=== PATIENT | female | born 1950 | race Asian ===

== ENCOUNTER 2016-11-05 12:45 | Emergency (ER) | payer MEDICARE, OTHER ==
[~2016-11-05] VITALS: Ht 147.3 cm; Wt 68.0 kg
[~2016-11-05 12:45] MED LIST: /GLYB5TA PO; CIPR500T19 OR; GLUC1000 OR; GLUC1000 PO; GLYB2.5T6 OR; INSULANT SC; Januvia PO; PRIN5TAB OR; ZINC220C OR; byetta SC
[2016-11-05 12:46] VITALS: BP 192/93
[2016-11-05] MEDS ORDERED: INSUH10VL SC (13:03)
[2016-11-05] MEDS ORDERED: VITA1CAP14 PO (13:03)
[2016-11-05] MEDS ORDERED: HYDR12.55 PO (13:03)
[2016-11-05] MEDS ORDERED: INSULANT SC (13:03)
[2016-11-05] MEDS ORDERED: FOSA70TA PO (13:03)
== END 2016-11-05 13:37 | disposition home or self-care (01) ==
LOC: M ED 13:31
DX: R60.9 Edema, unspecified (principal); E11.9 Type 2 diabetes mellitus without complications; Z79.84 Long term (current) use of oral hypoglycemic drugs; Z79.899 Other long term (current) drug therapy; Z79.4 Long term (current) use of insulin; Z88.8 Allergy status to other drugs, medicaments and biological substances; I10 Essential (primary) hypertension

== ENCOUNTER 2017-11-19 13:10 | Emergency (ER) | payer MEDICARE, OTHER ==
[2017-11-21 08:47] LABS: BEDSIDE GLUCOSE 237 MG/DL (80-115)
== END 2017-11-19 14:29 | disposition home or self-care (01) ==
LOC: M ED 13:10
DX: E10.65 Type 1 diabetes mellitus with hyperglycemia (principal); I10 Essential (primary) hypertension; Z79.4 Long term (current) use of insulin; Z88.8 Allergy status to other drugs, medicaments and biological substances
CPT/HCPCS: 99283

== ENCOUNTER 2017-12-23 09:07 | Day surgery (SDC) | payer MEDICARE, OTHER ==
[2017-12-23] MEDS: NS 1,000 ML IV (09:30)
[2017-12-23] MEDS ORDERED: fentaNYL 100 MCG/2 ML INJECTION (J3010) As Ordered (10:00)
[2017-12-23] MEDS ORDERED: LIDOCAINE 2% INJ 100 MG/5 ML SDV (FOR ANES.) As Ordered ×2 (10:00→10:39)
[2017-12-23] MEDS ORDERED: PROPOFOL 200 MG/20 ML VIAL As Ordered (10:40)
== END 2017-12-23 11:25 | disposition home or self-care (01) ==
LOC: M OPP 09:07
DX: K63.5 Polyp of colon (principal); K64.8 Other hemorrhoids; R19.4 Change in bowel habit; K31.84 Gastroparesis; K21.9 Gastro-esophageal reflux disease without esophagitis; E11.9 Type 2 diabetes mellitus without complications; I10 Essential (primary) hypertension; F32.9 Major depressive disorder, single episode, unspecified; Z79.4 Long term (current) use of insulin; Z79.891 Long term (current) use of opiate analgesic; Z79.899 Other long term (current) drug therapy; Z88.8 Allergy status to other drugs, medicaments and biological substances; Z90.711 Acquired absence of uterus with remaining cervical stump; Z80.0 Family history of malignant neoplasm of digestive organs; Z86.73 Personal history of transient ischemic attack (TIA), and cerebral infarction without residual deficits
CPT/HCPCS: 45385

== ENCOUNTER 2018-11-21 04:35 | Emergency (ER) | payer MEDICARE, OTHER ==
[~2018-11-21] VITALS: Ht 152.4 cm; Wt 65.9 kg
[~2018-11-21 04:35] MED LIST changes: -/GLYB5TA PO; +ANTI2TAB16; +ATOR40TA75; +DIFL150T PO; +FOSA70TA PO; +GABA-1171; +GLYB1TAB29 PO; +HYDR-3713 PO; +HYDR12.55 PO; +HYDR1CAP25; +HYDROCODONE-ACETAMIN; +INSUH10VL SC; +PANT40TA3; +REFR0.1D OU; +TRAM50TA2; +VITA1CAP14 PO
[2018-11-21] MEDS ORDERED: METH1TAB40 (04:48)
[2018-11-21] MEDS ORDERED: VITA1CAP25 (04:48)
[2018-11-21] MEDS ORDERED: IBUP80TA (04:48)
[2018-11-21] MEDS ORDERED: JANU100T (04:48)
[2018-11-21] MEDS ORDERED: NOVOINJ2 (04:48)
[2018-11-21] MEDS ORDERED: LISI-538 (04:48)
[2018-11-21] MEDS ORDERED: FISH1000 (04:48)
[2018-11-21] MEDS ORDERED: OMEP40CA2 (04:48)
[2018-11-21] MEDS ORDERED: ASPI1TAB15 (04:48)
[2018-11-21] MEDS ORDERED: METF500T4 (04:48)
[2018-11-21] MEDS ORDERED: JARD1TAB3 (04:48)
[2018-11-21] MEDS ORDERED: methylPREDNISolone INJ 125 MG/2 ML VIAL (J2930) IM ONE (06:00)
[2018-11-21] MEDS ORDERED: PRED20TA PO (06:05)
[2018-11-21] MEDS ORDERED: ZITHTAB PO (06:05)
[2018-11-21 06:07] LABS: INFLUENZA A AMPLIFICATION NEGATIVE (NEGATIVE); INFLUENZA B AMPLIFICATION NEGATIVE (NEGATIVE)
[2018-11-21 06:24] VITALS: BP 135/82
--- NOTE | 2018-11-21 07:18 | REP ---
Comparisons are the PA and lateral chest dated 04/15/2009 and portable chest of 01/12/2012. The lung boyd are clear. The cardiac size is normal. The juan, mediastinum, and skeletal structures are unremarkable. There has been interval placement of a cervical spine stabilization plate. Impression: Negative PA and lateral chest. Electronically Signed by Moody Cheng MD 11/21/2018 07:09 A
== END 2018-11-21 06:20 | disposition home or self-care (01) ==
LOC: M ED 04:35
DX: J40 Bronchitis, not specified as acute or chronic (principal); Z91.041 Radiographic dye allergy status; Z79.82 Long term (current) use of aspirin; Z79.899 Other long term (current) drug therapy
CPT/HCPCS: 71046; 87502; 87798; 96372; 99283; J2930

== ENCOUNTER 2018-12-04 08:09 | Emergency (ER) | payer MEDICARE, OTHER ==
[~2018-12-04] VITALS: Ht 147.3 cm; Wt 67.3 kg
[~2018-12-04 08:09] MED LIST changes: +ASPI1TAB15; +FISH1000; +IBUP80TA; +JANU100T; +JARD1TAB3; +LISI-538; +METF500T4; +METH1TAB40; +NOVOINJ2; +OMEP40CA2; +PRED20TA PO; +VITA1CAP25; +ZITHTAB PO
[2018-12-04] MEDS ORDERED: VALT1TAB PO ×2 (09:37→11:18)
[2018-12-04] MEDS ORDERED: CALA120T2 PO ×2 (09:37→11:18)
[2018-12-04] MEDS ORDERED: MACR100C43 PO ×2 (11:09→11:18)
[2018-12-04 11:25] VITALS: BP 128/83
== END 2018-12-04 11:30 | disposition home or self-care (01) ==
LOC: M ED 08:09
DX: R05 Cough (principal); N39.3 Stress incontinence (female) (male); N76.6 Ulceration of vulva; N39.0 Urinary tract infection, site not specified; E11.9 Type 2 diabetes mellitus without complications; I10 Essential (primary) hypertension; E78.5 Hyperlipidemia, unspecified; Z79.82 Long term (current) use of aspirin; Z79.4 Long term (current) use of insulin; Z79.899 Other long term (current) drug therapy; Z88.8 Allergy status to other drugs, medicaments and biological substances

== ENCOUNTER → 2019-04-19 | Outpatient (CLI) | payer MEDICARE, OTHER ==
[~2019-04-19] MED LIST changes: +CALA120T2 PO; +MACR100C43 PO; +METF-791; -METF500T4; -OMEP40CA2; +OMEP40CA97; +VALT1TAB PO
--- NOTE | 2019-04-20 15:46 | DEXA ---
AP SPINE L1 - L4 1.003 -1.5 0.1 LT FEMUR TOTAL 0.953 -0.4 0.9 LT NECK 0.783 -1.8 -0.3 RT FEMUR TOTAL 1.014 0.0 1.4 RT NECK 0.817 -1.6 0.0 TOTAL BODY TOTAL OTHER COMMENTS: . There is low bone density of the spine and hips. FOLLOW-UP: Recommendation for the next bone density exam: 2 years. KATRIN
== END ==
LOC: M WHC 07:49
PROVIDERS: ATTEND Student in an Organized Health Care Education/Training Program
DX: Z87.310 Personal history of (healed) osteoporosis fracture (principal); M85.851 Other specified disorders of bone density and structure, right thigh; M85.852 Other specified disorders of bone density and structure, left thigh; M85.88 Other specified disorders of bone density and structure, other site

== ENCOUNTER 2019-10-08 01:54 | Emergency (ER) | payer MEDICARE, OTHER ==
[~2019-10-08] VITALS: Ht 147.3 cm; Wt 68.8 kg
--- NOTE | 2019-10-08 03:46 | REPVR ---
PROCEDURE INFORMATION: Exam: CT Head Without Contrast Exam date and time: 10/08/19 (3:11am) Age: 69 years old Clinical indication: Pain. Headache. Hypertension. TECHNIQUE: Imaging protocol: Computed tomography of the head without contrast. Radiation optimization: All CT scans at this facility use at least one of these dose optimization techniques: automated exposure control; mA and/or kV adjustment per patient size (includes targeted exams where dose is matched to clinical indication); or iterative reconstruction. COMPARISON: No relevant prior studies available FINDINGS: Brain: Age-appropriate atrophic changes. No acute hemorrhage. No mass effect. Bilateral basal ganglia calcifications. Ventricles: Normal. No ventriculomegaly. Bones/joints: Unremarkable. No acute fracture. Sinuses: Visualized sinuses are unremarkable. No air-fluid levels. Mastoid air cells: Visualized mastoid air cells are well aerated. Soft tissues: Unremarkable. IMPRESSION: No acute intracranial pathology is appreciated. Electronically signed by: Nadine Mendoza On 10/08/2019 03:45:51 AM
[2019-10-08 03:47] LABS: BASO # 0.1 10^3/uL (0.0-0.2); BASO % 0.7 % (0.0-1.0); EOS # 0.2 10^3/uL (0.0-0.5); EOS % 2.2 % (0.0-3.0); HEMATOCRIT 48.7 % (36.0-47.0); HEMOGLOBIN 16.5 g/dl (12.0-15.5); LYMPH # 3.4 10^3/uL (1.5-5.0); LYMPH % 37.1 % (24.0-44.0); MEAN CORPUSCULAR HEMOGLOBIN 30.6 pg (27.0-33.0); MEAN CORPUSCULAR HGB CONC 33.9 g/dl (32.0-36.5); MEAN CORPUSCULAR VOLUME 90.2 fl (80.0-96.0); MONO # 0.7 10^3/uL (0.0-0.8); MONO % 7.3 % (0.0-5.0); NEUTROPHILS # 4.8 10^3/uL (1.5-8.5); NEUTROPHILS % 52.5 % (36.0-66.0); PLATELET COUNT, AUTOMATED 261 10^3/uL (150-450); WHITE BLOOD COUNT 9.2 10^3/uL (4.0-10.0)
[2019-10-08 04:17] LABS: BLOOD UREA NITROGEN 14 MG/DL (7-18); CALCIUM LEVEL 8.6 MG/DL (8.8-10.2); CARBON DIOXIDE LEVEL 29 MEQ/L (21-32); CHLORIDE LEVEL 100 MEQ/L (98-107); CK-MB VALUE MASS 1.3 NG/ML (<3.6); CPK CREATINE PHOSPHOKINASE 153 U/L (26-192); CREATININE FOR GFR 0.73 MG/DL (0.55-1.30); GLOMERULAR FILTRATION RATE > 60.0 (>45); GLUCOSE, FASTING 136 MG/DL (70-100); MB/CK RELATIVE INDEX 0.85 (< OR =4); POTASSIUM SERUM 3.9 MEQ/L (3.5-5.1); SODIUM LEVEL 137 MEQ/L (136-145); TROPONIN I < 0.02 NG/ML (< 0.10)
[2019-10-08] MEDS ORDERED: hydroCHLOROthiazide 12.5 MG CAPSULE PO ONE (05:30)
[2019-10-08] MEDS ORDERED: NOVOINJ SC (05:39)
[2019-10-08 05:48] VITALS: BP 162/102
[2019-10-08] MEDS ORDERED: HYDR12.55 PO (05:55)
--- NOTE | 2019-10-08 08:08 | REP ---
Portable chest, 03:50 a.m., single AP view: Comparison is 11/21/2018, PA and lateral views: The lung boyd are clear. The cardiac size is normal. The juan, mediastinum, and skeletal structures are unremarkable. There is a cervical spine stabilization plate, unchanged. Impression: Negative portable chest. There is no interval change. Electronically Signed by Moody Cheng MD 10/08/2019 08:00 A
--- NOTE | 2019-10-08 20:55 | ECGEPIP ---
[facility] - ED Test Date: 2019-10-08 Pat Name: ANDRÉS KNIGHT Department: Room: - Gender: Female Transcripter: ese : 1950 Requested By: MAYCOL Bang Order Number: [id number] Reading MD: Wendi Pascual Measurements Intervals [place] Rate: 65 P: 49 MA: 166 QRS: -16 QRSD: 98 T: 71 QT: 423 QTc: 442 Interpretive Statements SINUS RHYTHM NO PRIOR Electronically Signed on 10-08-2019 20:55:11 EST by Wendi Pascual
== END 2019-10-08 06:20 | disposition home or self-care (01) ==
LOC: M ED 01:54
DX: I10 Essential (primary) hypertension (principal); Z88.8 Allergy status to other drugs, medicaments and biological substances; Z79.899 Other long term (current) drug therapy; Z79.82 Long term (current) use of aspirin; Z79.4 Long term (current) use of insulin

== ENCOUNTER → 2020-05-17 | Outpatient (CLI) | payer MEDICARE, OTHER ==
[~2020-05-17] MED LIST changes: +ASPI-546; -ASPI1TAB15; -METF-791; +METF-838; +NOVOINJ SC; +PANT40TA29; -PANT40TA3
[2020-05-17 14:21] LABS: ALBUMIN 3.7 GM/DL (3.2-5.2); ALT/SGPT 49 U/L (12-78); BILIRUBIN,DIRECT 0.1 MG/DL (0.0-0.2); BILIRUBIN,TOTAL 0.6 MG/DL (0.2-1.0); BLOOD UREA NITROGEN 11 MG/DL (7-18); CALCIUM LEVEL 9.3 MG/DL (8.8-10.2); CARBON DIOXIDE LEVEL 30 MEQ/L (21-32); CHLORIDE LEVEL 105 MEQ/L (98-107); CPK CREATINE PHOSPHOKINASE 209 U/L (26-192); GLOMERULAR FILTRATION RATE > 60.0 (>45); GLUCOSE, FASTING 95 MG/DL (70-100); IRON (FE) 54 UG/DL (50-170); PHOSPHORUS LEVEL 4.4 MG/DL (2.5-4.9); POTASSIUM SERUM 4.1 MEQ/L (3.5-5.1); SODIUM LEVEL 141 MEQ/L (136-145); TOTAL PROTEIN 7.5 GM/DL (6.4-8.2)
[2020-05-17 14:25] LABS: VITAMIN B12 LEVEL 403 PG/ML (247-911)
== END ==
LOC: M PLALAB 11:09
PROVIDERS: ATTEND Internal Medicine
DX: M79.10 Myalgia, unspecified site (principal); R25.2 Cramp and spasm; Z79.899 Other long term (current) drug therapy

== ENCOUNTER → 2020-06-04 | Outpatient (CLI) | payer MEDICARE, OTHER | LOC: M WHC 09:22 | PROVIDERS: ATTEND Internal Medicine | DX: M54.6 Pain in thoracic spine (principal); M54.5 Low back pain; Z78.0 Asymptomatic menopausal state; Z53.9 Procedure and treatment not carried out, unspecified reason ==

== ENCOUNTER → 2020-08-14 | Outpatient (CLI) | payer MEDICARE, OTHER ==
--- NOTE | 2020-08-14 09:13 | REPMRS ---
Patient History The patient states she has not had a clinical breast exam in over a year. Patient is postmenopausal. No known family history of cancer. Digital Woman Screen Mammo: August 14, 2020 - Exam #: [id number] Bilateral CC and MLO view(s) were taken. Technologist: Zara Michelle, Technologist Prior study comparison: October 28, 2018, bilateral digital mammo screening bilat, performed at [facility]. October 06, 2017, bilateral digital mammo screening bilat, performed at [facility]. October 03, 2016, bilateral digital mammo screening bilat, performed at [facility]. FINDINGS: There are scattered fibroglandular densities. The Volpara volumetric breast density category is:B. There has been no change in the appearance of the mammogram from the prior studies. There is a mild amount of scattered fibroglandular density which is fairly symmetric. There is no interval development of dominant mass, architectural distortion, or grouped microcalcification suggestive of malignancy. 3-D tomosynthesis shows no additional findings. Assessment: BI-RADS/ACR category 1 mammogram. Negative Mammogram. Recommendation Routine screening mammogram of both breasts in 1 year (for women over age 40). This patient's [facility] Lifetime Breast Cancer Risk is estimated at 4.3 %. This mammogram was interpreted with the aid of an FDA-approved computer-aided dectection system. Electronically Signed By: Oral Torrez MD 08/14/20 0913
== END ==
LOC: M WHC 07:39
PROVIDERS: ATTEND Family Medicine
DX: Z12.31 Encounter for screening mammogram for malignant neoplasm of breast (principal)

== ENCOUNTER → 2020-09-03 | Outpatient (REF) | payer MEDICARE, OTHER ==
[~2020-09-03] MED LIST changes: -LISI-538; +LISI20TA33; +METH-1164; -METH1TAB40
[2020-09-03 18:16] LABS: ALBUMIN 3.8 GM/DL (3.2-5.2); BILIRUBIN,DIRECT 0.2 MG/DL (0.0-0.2); BILIRUBIN,TOTAL 0.9 MG/DL (0.2-1.0); TOTAL PROTEIN 7.3 GM/DL (6.4-8.2)
== END ==
LOC: M SFHCRHEU 12:45
PROVIDERS: ATTEND Internal Medicine
DX: R74.01 Elevation of levels of liver transaminase levels (principal)
CPT/HCPCS: 80076; G0463

== ENCOUNTER → 2020-09-13 | Outpatient (CLI) | payer MEDICARE, OTHER ==
[~2020-09-13] MED LIST changes: +LISI-538; -LISI20TA33; -METH-1164; +METH1TAB40
--- NOTE | 2020-09-19 02:03 | ECWPNPC ---
PATIENT NAME: ANDRÉS KNIGHT : 1950 GENDER: FEMALE VISIT DATE: 09/13/2020 DISCHARGE DATE: 09/13/20 1140 VISIT LOCKED DATE TIME: PHYSICIAN: MICKI GANT RESOURCE: MICKI GANT REASON FOR APPOINTMENT 1. BACK HISTORY OF PRESENT ILLNESS DEPRESSION SCREENING: PHQ-2 (2015 EDITION) LITTLE INTEREST OR PLEASURE IN DOING THINGS?NOT AT ALL FEELING DOWN, DEPRESSED, OR HOPELESS?NOT AT ALL TOTAL SCORE0 GENERAL: ANDRÉS IS BEING SEEN TODAY PER REFERRAL OF DR. CASTILLO, RHEUMATOLOGY IN [place] TO EVALUATE COMPLAINTS OF PERSISTENT MUSCLE SPASM TYPE PAIN AND GENERALIZED BODY PAIN. SHE IS ACCOMPANIED IN THE EXAM ROOM WITH HER . BOTH SHE AND HER ARE VAGUE HISTORIANS. REPORTING WHAT SOUNDS LIKE A FALL THAT CAUSED AGGRAVATION IN HER PAIN IN THE PAST FEW MONTHS. NO SPECIFIC SITE OF PAIN JUST REPORTS OF CRAMPING MAINLY AT NIGHT AND MUSCLE SPASM IN HER LEGS. SHE WAS VERY ACTIVE UP UNTIL RESTRICTIONS OF COVID 19. STATES SHE SWAM EVERY DAY YEAR-ROUND. SHE WAS NOT SUFFERING FROM MUSCLE SPASM TYPE PAIN AT THAT POINT IN TIME. DENIES BOWEL OR BLADDER INCONTINENCE. DENIES ANY FOCAL SITES OF PAIN. DENIES SADDLE PARESTHESIAS. -. FALL RISK SCREENING: SCREENING :NO FALLS REPORTED IN THE LAST YEAR PAIN SCREENING: PATIENT HAS A COMPLAINT OF ACUTE OR CHRONIC PAIN :YES LOCATION OF PAIN:UPPER BACK, MID BACK, LOW BACK INTENSITY OF PAIN (SCALE OF 1 TO 10):8 WHAT DOES YOUR PAIN FEEL LIKE: MUSCLE PAIN AND CRAMPS DURATION:CONTINOUS, CONSTANT PAIN IS INCREASED BY:ACTIVITIES PAIN IS DECREASED BY:USE OF PAIN MEDICATIONS TREATMENT/MEDICATIONS USED TO MANAGE PAIN:OTC PAIN RELIEVERS LEVEL OF RELIEF FROM PAIN TREATMENTS IN THE PAST:0% NURSING NOTE: -. PAIN CENTER INTAKE QUESTIONS: DO YOU HAVE A HISTORY OF MRSA? :NO DO YOU TAKE A BLOOD THINNERS? :NO DO YOU HAVE ANY BLEEDING DISORDERS? :NO ANY NEW NUMBNESS OR WEAKNESS IN YOUR LEGS OR ARMS? :NO ANY PACEMAKER,DEFIBRILLATOR, OR DORSAL COLUMN STIMULATOR? :NO DO YOU HAVE ANY RASHES OR OPEN SORES? :NO ARE YOU ALLERGIC TO IV DYE? :NO ARE YOU DIABETIC? :YES ANY NEW PROBLEMS WITH YOUR MEDICATIONS? :NO HAVE YOU RECEIVED A VACCINE IN THE PAST 30 DAYS? :NO DO YOU PLAN TO RECEIVE A VACCINE IN THE NEXT 21 DAYS? :NO DO YOU NEED ANY PRESCRIPTION? :NO DO YOU TAKE ANY IMMUNOSUPPRESSIVE MEDICATIONS? :NO IS THERE A CHANCE YOU COULD BE ? :NO ARE YOU BREAST FEEDING? :NO CURRENT MEDICATIONS TAKING LISINOPRIL 12.5 1 TAB ORALLY ONCE DAILY TAKING NOVOLOG SUBCUTANEOUS 24AM AND 24PM TAKING LANTUS 32 UNITS SUBCUTANEOUS TAKING VITAMIN D 1000 UNIT TABLET 1 TAB ORALLY DAILY TAKING MULTIVITAMIN 1 TAB DAILY TAKING FISH OIL 1000 MG CAPSULE ORALLY DAILY TAKING OMEPRAZOLE 40 MG CAPSULE DELAYED RELEASE 1 TAB ORALLY DAILY TAKING PROCTOFOAM HC 1-1 % FOAM 1 APPLICATION NEEDED RECTAL FOUR TIMES A DAY TAKING DOCUSATE SODIUM 100 MG CAPSULE 1 CAPSULE NEEDED ORALLY BID TAKING GABAPENTIN (ONCE-DAILY) 300 MG TABLET 1 TABLET ORALLY ONCE A DAY, NOTES: X3 DAILY TAKING NATHAN 500 MG CAPSULE DIRECTED ORALLY DAILY TAKING LIDOCAINE 5 % PATCH 1 PATCH REMOVE AFTER 12 HOURS EXTERNALLY ONCE A DAY NOT-TAKING VITAMIN B COMPLEX - TABLET DIRECTED ORALLY DAILY NOT-TAKING METFORMIN HCL 1000 MG TABLET ORALLY 1 TAB AM 1 TAB PM NOT-TAKING SITAGLIPTIN PHOSPHATE NOT-TAKING GLYBURIDE-METFORMIN NOT-TAKING SIMVASTATIN 10 NOT-TAKING CALCIUM 600 + D MEDICATION LIST REVIEWED AND RECONCILED WITH THE PATIENT PAST MEDICAL HISTORY STROKE DIABETES MELLITUS HYPERLIPIDEMIA ALLERGIES IODINE: RASH - ALLERGY SURGICAL HISTORY C SECTION LT. FOREARM 10/2018 CERVICAL SURGERY 2018 SOCIAL HISTORY GENERAL: TOBACCO USE ARE YOU A:NONSMOKER LATEX QUESTIONNAIRE LATEX ALLERGY : HAVE YOU EVER DEVELOPED ANY TYPE OF REACTION AFTER HANDLING LATEX PRODUCTS SUCH RUBBER GLOVES, CONDOMS, DIAPHRAGMS, BALLOONS, SOCKS, OR UNDERWEAR?NO LATEX ALLERGY : HAVE YOU EVER DEVELOPED ANY TYPE OF REACTION DURING OR AFTER DENTAL APPOINTMENT, VAGINAL/RECTAL EXAMINATION, SURGICAL PROCEDURE, OR ANY OTHER EXPOSURE?NO DATE ASKED : 09/03/2020 LATEX RISK : HAVE YOU EVER HAD ANY DIFFICULTY BREATHING OR HIVES AFTER EATING OR HANDLING ANY FRUITS, OR VEGETABLES; SUCH KIWI, BANANAS, STONE FRUITS, OR CHESTNUTSNO LATEX RISK : DO YOU HAVE A PREVIOUS PERSONAL HISTORY OF MORE THAN NINE SURGERIES, SPINA BIFIDA, OR REPEATED CATHERIZATIONS? NO LATEX RISK : ARE YOU FREQUENTLY EXPOSED TO LATEX PRODUCTS IN YOUR OCCUPATION?NO ALCOHOL USE: NO. ALCOHOL SCREENING DID YOU HAVE A DRINK CONTAINING ALCOHOL IN THE PAST YEAR?NO POINTS0 INTERPRETATIONNEGATIVE RECREATIONAL DRUG USE DRUG USE?YES CAFFEINE CAFFEINE USE?YES COFFEE- SOMETIMES LEARNING BARRIERS / SPECIAL NEEDS BARRIERS TO LEARNING?NO HEARING IMPAIRED?NO VISION IMPAIRED?NO COGNITIVELY IMPAIRED?NO READINESS TO LEARN?YES LEARNING PREFERENCES?YES :TAPES/VIDEOS LEARNING CAPABILITIES PRESENT?YES EMOTIONAL BARRIERS?NO SPECIAL DEVICES?NO LIGHT OUT EXAMINER NEEDED?NO EXERCISE: WALK- 3 MILES DAILY, SWIMMING DAILY. HOSPITALIZATION/MAJOR DIAGNOSTIC PROCEDURE SURGICAL RELATED REVIEW OF SYSTEMS CONSTITUTIONAL: ANY RECENT FEVER NO . CHILLS NO . WEIGHT CHANGE OF UNKNOWN REASONS NO . GASTROENTEROLOGY: NEW UNEXPLAINABLE CHANGES IN BOWEL CONTROL NO . CONSTIPATION NO . GENITOURINARY: ANY NEW CHANGE IN BLADDER CONTROL? NO . NEUROLOGY: NEW ONSET DIZZINESS OR NEUROLOGICAL CHANGES NOT MENTIONED NO . NEW NUMBNESS OR PAIN PATTERNS NOT MENTIONED AND PERTINENT TO TODAY'S VISIT NO . CARDIOLOGY: NEW CHEST PRESSURE NO . NEW CHEST PAIN NO . RESPIRATORY: UNEXPLAINABLE COUGH NO . NEW SHORTNESS OF BREATH NO . VITAL SIGNS WT 153 LBS, HT 59 IN, BMI 30.90 INDEX, BP 145/75 MM HG, HR 77 /MIN, RR 18 /MIN, TEMP 96.8 F, OXYGEN SAT % 96%, SAFE IN ENV? (Y/N) YES, REVIEWED BY: RIVKA ROB MA. EXAMINATION GENERAL EXAMINATION: GENERALNO ACUTE DISTRESS, WELL NOURISHED AND HYDRATED. PSYCHAPPROPRIATE MOOD AND AFFECT . NECK:NO LYMPHADENOPATHY, SUPPLE. LUNGS:CLEAR TO AUSCULTATION BILATERALLY, NO WHEEZES, RHONCHI, RALES. HEART:NO MURMURS, REGULAR RATE AND RHYTHM. MUSCULOSKELETAL:NORMAL RANGE OF MOTION. MUSCLE STRENGTH TESTING 5/5 UPPER AND LOWER EXTREMITIES. LUMBAR: PALPATION: NEGATIVE FOR PAIN OVER L/S SPINE. NEGATIVE FOR PAIN OVER L/S PARSPINALS. CERVICAL: NEGATIVE FOR PAIN WITH PALPATION OF CERVICAL SPINE. NEGATIVE FOR PAIN WITH PALPATION OF CERVICAL PARASPINALS. NEGATIVE FOR PAIN WITH PALPATION OF TRAPEZIUS BILAT. NEUROLOGIC EXAM:NORMAL SENSATION TO LIGHT TOUCH UPPER AND LOWER EXTREMITIES. . ASSESSMENTS MYALGIA - M79.10 (PRIMARY) TREATMENT MYALGIA START SOMA TABLET, 350 MG, 1 TAB, ORALLY, AT BEDTIME, 30 DAYS, 30, REFILLS 1 NOTES: START SOMA 350 MG TABLET 1 AT BEDTIME FOR MUSCLE SPASM PAIN. RETURN TO CLINIC IN 6 WEEKS. PROCEDURE CODES FA211 ESTABILISHED PATIENT [facility] CHARGE DISPOSITION & COMMUNICATION FOLLOW UP 6 WEEKS (REASON: MEDICATION FOLLOW-UP AFTER STARTING SOMA 350 MG AT BEDTIME) ELECTRONICALLY SIGNED BY KATHERIN CRISTINA ON 09/18/2020 AT 10:39 AM EST DISCLAIMER : THIS IS A VISIT SUMMARY EXTRACTED FROM THE [employer] CHART. IT IS NOT A COPY OF THE [employer] PROGRESS NOTE. KATRIN
== END ==
LOC: M PAIN 10:45
PROVIDERS: ATTEND Nurse Practitioner Family
DX: M79.18 Myalgia, other site (principal); E11.9 Type 2 diabetes mellitus without complications; E78.5 Hyperlipidemia, unspecified; Z86.73 Personal history of transient ischemic attack (TIA), and cerebral infarction without residual deficits; Z79.4 Long term (current) use of insulin; Z79.899 Other long term (current) drug therapy; Z88.8 Allergy status to other drugs, medicaments and biological substances

== ENCOUNTER 2020-09-24 09:15 | Outpatient (RCR) | payer MEDICARE, OTHER ==
[~2020-09-24 09:15] MED LIST changes: -LISI-538; +LISI20TA33; +METH-1164; -METH1TAB40
== END 2020-10-13 ==
LOC: M PT 09:15
PROVIDERS: ATTEND Internal Medicine
DX: M51.36 Other intervertebral disc degeneration, lumbar region (principal)

== ENCOUNTER 2020-10-25 08:09 | Outpatient (RCR) | payer MEDICARE, OTHER | END 2020-11-13 | LOC: M PT 08:09 | PROVIDERS: ATTEND Internal Medicine | DX: M51.36 Other intervertebral disc degeneration, lumbar region (principal) ==

== ENCOUNTER → 2020-11-08 | Outpatient (CLI) | payer MEDICARE, OTHER ==
--- NOTE | 2020-11-14 07:04 | ECWPNPC ---
PATIENT NAME: ANDRÉS KNIGHT : 1950 GENDER: FEMALE VISIT DATE: 11/08/2020 DISCHARGE DATE: 11/08/20 1015 VISIT LOCKED DATE TIME: PHYSICIAN: MICKI GANT RESOURCE: MICKI GANT REASON FOR APPOINTMENT 1. MEDICATION FOLLOW-UP AFTER STARTING SOMA 350 MG AT BEDTIME HISTORY OF PRESENT ILLNESS GENERAL: ANDRÉS IS BEING SEEN TODAY FOR FOLLOW-UP AFTER INITIAL CONSULT AND STARTING SOMA 350 MG AT BEDTIME. ACCOMPANIED IN EXAM ROOM WITH HER . SPEAKS VERY LITTLE ITALIAN. CHIEF COMPLAINT IS MIDTHORACIC BACK PAIN. PAIN IS AGGRAVATED IN THIS REGION WHEN SHE LAYS FLAT ON BED. STATES SOMA IS HELPING WITH LEG CRAMPING THAT SHE WAS COMPLAINING OF AT INITIAL CONSULT. PATIENT WOULD LIKE SHOTS. NO RECENT IMAGING OF THE SPINE.-. FALL RISK SCREENING: SCREENING : NO FALLS REPORTED IN THE LAST YEAR. PAIN SCREENING: PATIENT HAS A COMPLAINT OF ACUTE OR CHRONIC PAIN :NO NURSING NOTE: -. PAIN CENTER INTAKE QUESTIONS: DO YOU HAVE A HISTORY OF MRSA? :NO DO YOU TAKE A BLOOD THINNERS? :NO DO YOU HAVE ANY BLEEDING DISORDERS? :NO ANY NEW NUMBNESS OR WEAKNESS IN YOUR LEGS OR ARMS? :NO ANY PACEMAKER,DEFIBRILLATOR, OR DORSAL COLUMN STIMULATOR? :NO DO YOU HAVE ANY RASHES OR OPEN SORES? :NO ARE YOU ALLERGIC TO IV DYE? :NO ARE YOU DIABETIC? :YES ANY NEW PROBLEMS WITH YOUR MEDICATIONS? :NO HAVE YOU RECEIVED A VACCINE IN THE PAST 30 DAYS? :NO DO YOU PLAN TO RECEIVE A VACCINE IN THE NEXT 21 DAYS? :NO DO YOU NEED ANY PRESCRIPTION? :NO DO YOU TAKE ANY IMMUNOSUPPRESSIVE MEDICATIONS? :NO IS THERE A CHANCE YOU COULD BE ? :NO ARE YOU BREAST FEEDING? :NO CURRENT MEDICATIONS TAKING LISINOPRIL 12.5 1 TAB ORALLY ONCE DAILY TAKING NOVOLOG SUBCUTANEOUS 24AM AND 24PM TAKING LANTUS 32 UNITS SUBCUTANEOUS TAKING VITAMIN D 1000 UNIT TABLET 1 TAB ORALLY DAILY TAKING MULTIVITAMIN 1 TAB DAILY TAKING FISH OIL 1000 MG CAPSULE ORALLY DAILY TAKING OMEPRAZOLE 40 MG CAPSULE DELAYED RELEASE 1 TAB ORALLY DAILY TAKING PROCTOFOAM HC 1-1 % FOAM 1 APPLICATION NEEDED RECTAL FOUR TIMES A DAY TAKING DOCUSATE SODIUM 100 MG CAPSULE 1 CAPSULE NEEDED ORALLY BID TAKING GABAPENTIN (ONCE-DAILY) 300 MG TABLET 1 TABLET ORALLY ONCE A DAY, NOTES: X3 DAILY TAKING NATHAN 500 MG CAPSULE DIRECTED ORALLY DAILY TAKING LIDOCAINE 5 % PATCH 1 PATCH REMOVE AFTER 12 HOURS EXTERNALLY ONCE A DAY TAKING SOMA 350 MG TABLET 1 TAB ORALLY AT BEDTIME UNKNOWN VITAMIN B COMPLEX - TABLET DIRECTED ORALLY DAILY UNKNOWN METFORMIN HCL 1000 MG TABLET ORALLY 1 TAB AM 1 TAB PM UNKNOWN SITAGLIPTIN PHOSPHATE UNKNOWN GLYBURIDE-METFORMIN UNKNOWN SIMVASTATIN 10 UNKNOWN CALCIUM 600 + D MEDICATION LIST REVIEWED AND RECONCILED WITH THE PATIENT PAST MEDICAL HISTORY STROKE DIABETES MELLITUS HYPERLIPIDEMIA ALLERGIES N.K.D.A. SURGICAL HISTORY C SECTION LT. FOREARM 10/2018 CERVICAL SURGERY 2018 FAMILY HISTORY BROTHER- CANCER. SOCIAL HISTORY GENERAL: TOBACCO USE ARE YOU A:NONSMOKER LATEX QUESTIONNAIRE LATEX ALLERGY : HAVE YOU EVER DEVELOPED ANY TYPE OF REACTION AFTER HANDLING LATEX PRODUCTS SUCH RUBBER GLOVES, CONDOMS, DIAPHRAGMS, BALLOONS, SOCKS, OR UNDERWEAR?NO LATEX ALLERGY : HAVE YOU EVER DEVELOPED ANY TYPE OF REACTION DURING OR AFTER DENTAL APPOINTMENT, VAGINAL/RECTAL EXAMINATION, SURGICAL PROCEDURE, OR ANY OTHER EXPOSURE?NO DATE ASKED : 09/03/2020 LATEX RISK : HAVE YOU EVER HAD ANY DIFFICULTY BREATHING OR HIVES AFTER EATING OR HANDLING ANY FRUITS, OR VEGETABLES; SUCH KIWI, BANANAS, STONE FRUITS, OR CHESTNUTSNO LATEX RISK : DO YOU HAVE A PREVIOUS PERSONAL HISTORY OF MORE THAN NINE SURGERIES, SPINA BIFIDA, OR REPEATED CATHERIZATIONS? NO LATEX RISK : ARE YOU FREQUENTLY EXPOSED TO LATEX PRODUCTS IN YOUR OCCUPATION?NO ALCOHOL USE: NO. ALCOHOL SCREENING DID YOU HAVE A DRINK CONTAINING ALCOHOL IN THE PAST YEAR?NO POINTS0 INTERPRETATIONNEGATIVE RECREATIONAL DRUG USE DRUG USE?YES CAFFEINE CAFFEINE USE?YES COFFEE- SOMETIMES LEARNING BARRIERS / SPECIAL NEEDS BARRIERS TO LEARNING?NO HEARING IMPAIRED?NO VISION IMPAIRED?NO COGNITIVELY IMPAIRED?NO READINESS TO LEARN?YES LEARNING PREFERENCES?YES :TAPES/VIDEOS LEARNING CAPABILITIES PRESENT?YES EMOTIONAL BARRIERS?NO SPECIAL DEVICES?NO LIVESTOCK COMMISSION AGENT NEEDED?NO EXERCISE: WALK- 3 MILES DAILY, SWIMMING DAILY. HOSPITALIZATION/MAJOR DIAGNOSTIC PROCEDURE SURGICAL RELATED REVIEW OF SYSTEMS CONSTITUTIONAL: ANY RECENT FEVER NO . CHILLS NO . WEIGHT CHANGE OF UNKNOWN REASONS NO . GASTROENTEROLOGY: NEW UNEXPLAINABLE CHANGES IN BOWEL CONTROL NO . CONSTIPATION NO . GENITOURINARY: ANY NEW CHANGE IN BLADDER CONTROL? NO . NEUROLOGY: NEW ONSET DIZZINESS OR NEUROLOGICAL CHANGES NOT MENTIONED NO . NEW NUMBNESS OR PAIN PATTERNS NOT MENTIONED AND PERTINENT TO TODAY'S VISIT NO . CARDIOLOGY: NEW CHEST PRESSURE NO . PATIENT DENIES NO . RESPIRATORY: UNEXPLAINABLE COUGH NO . NEW SHORTNESS OF BREATH NO . VITAL SIGNS WT 153 LBS, HT 59 IN, BMI 30.90 INDEX, BP 138/72 MM HG, HR 68 /MIN, RR 18 /MIN, TEMP 96.8 F, OXYGEN SAT % 97%, SAFE IN ENV? (Y/N) YES, NA INITIALS AL 09:01T.CHRISTINA KIRKLAND. EXAMINATION GENERAL EXAMINATION: GENERALNO ACUTE DISTRESS, WELL NOURISHED AND HYDRATED. PSYCHAPPROPRIATE MOOD AND AFFECT . LUNGS:CLEAR TO AUSCULTATION BILATERALLY, NO WHEEZES, RHONCHI, RALES. HEART:NO MURMURS, REGULAR RATE AND RHYTHM. MUSCULOSKELETAL:NORMAL RANGE OF MOTION. THORACIC SPINE: TRIGGER POINTS: ELICITED WITH PALPATION OVER MID THORACIC MUSCLES WITH INCREASED PAIN NOTED IN THESE AREAS WITH RANGE OF JOINT MOTION OF THE SPINE.. ASSESSMENTS MYALGIA, OTHER SITE - M79.18 (PRIMARY) PAIN IN THORACIC SPINE - M54.6 TREATMENT MYALGIA, OTHER SITE CONTINUE SOMA TABLET, 350 MG, 1 TAB, ORALLY, AT BEDTIME, 30 DAYS, 30, REFILLS 2 NOTES: TRIGGER POINT INJECTION BILATERAL THORACIC. PROCEDURE CODES FA211 ESTABILISHED PATIENT [facility] CHARGE DISPOSITION & COMMUNICATION FOLLOW UP POST PROCEDURE (REASON: TRIGGER POINT INJECTION BILATERAL THORACIC) ELECTRONICALLY SIGNED BY KATHERIN CRISTINA ON 11/13/2020 AT 03:56 PM EDT DISCLAIMER : THIS IS A VISIT SUMMARY EXTRACTED FROM THE [employer] CHART. IT IS NOT A COPY OF THE [employer] PROGRESS NOTE. KATRIN
== END ==
LOC: M PAIN 09:00
PROVIDERS: ATTEND Nurse Practitioner Family
DX: M79.18 Myalgia, other site (principal); M54.6 Pain in thoracic spine; E11.9 Type 2 diabetes mellitus without complications; Z86.73 Personal history of transient ischemic attack (TIA), and cerebral infarction without residual deficits; Z79.4 Long term (current) use of insulin; Z79.899 Other long term (current) drug therapy

== ENCOUNTER → 2020-11-09 | Outpatient (CLI) | payer MEDICARE, OTHER | LOC: M LABSMTC 08:38 | PROVIDERS: ATTEND Anesthesiology | DX: Z20.822 Contact with and (suspected) exposure to COVID-19 (principal) ==

== ENCOUNTER → 2020-11-14 | Outpatient (CLI) | payer MEDICARE, OTHER ==
[~2020-11-14] MED LIST changes: +BUPIVACAINE HCL 0.25% 10ML VIAL As Ordered ONE; +BUPIVACAINE HCL 0.25% 30ML VIAL As Ordered ONE; +TRIAMCINOLONE ACETONIDE SUSP 40 MG/ML VIAL (J3301) As Ordered ONE
--- NOTE | 2020-11-14 23:51 | ECWPNPC ---
PATIENT NAME: ANDRÉS KNIGHT : 1950 GENDER: FEMALE VISIT DATE: 11/14/2020 DISCHARGE DATE: 11/14/20 1019 VISIT LOCKED DATE TIME: PHYSICIAN: LEONEL BARRIENTOS MD RESOURCE: LEONEL BARRIENTOS MD REASON FOR APPOINTMENT 1. TRIGGER POINT INJECTIONS BILATERAL THORACIC HISTORY OF PRESENT ILLNESS GENERAL: -. FALL RISK SCREENING: SCREENING : NO FALLS REPORTED IN THE LAST YEAR. PAIN SCREENING: PATIENT HAS A COMPLAINT OF ACUTE OR CHRONIC PAIN :YES LOCATION OF PAIN:UPPER BACK INTENSITY OF PAIN (SCALE OF 1 TO 10):8 WHAT DOES YOUR PAIN FEEL LIKE:ACHING, CONTINOUS DURATION:CONTINOUS NURSING NOTE: -. PAIN CENTER INTAKE QUESTIONS: DO YOU HAVE A HISTORY OF MRSA? :NO DO YOU TAKE A BLOOD THINNERS? :NO DO YOU HAVE ANY BLEEDING DISORDERS? :NO ANY NEW NUMBNESS OR WEAKNESS IN YOUR LEGS OR ARMS? :NO ANY PACEMAKER,DEFIBRILLATOR, OR DORSAL COLUMN STIMULATOR? :NO DO YOU HAVE ANY RASHES OR OPEN SORES? :NO ARE YOU ALLERGIC TO IV DYE? :NO ARE YOU DIABETIC? :YES ANY NEW PROBLEMS WITH YOUR MEDICATIONS? :NO HAVE YOU RECEIVED A VACCINE IN THE PAST 30 DAYS? :YES SECOND COVID ON OCTOBER 25 IF SO WHAT VACCINE AND WHEN? COVID 19 DO YOU PLAN TO RECEIVE A VACCINE IN THE NEXT 21 DAYS? :NO DO YOU TAKE ANY IMMUNOSUPPRESSIVE MEDICATIONS? :NO ANY HISTORY OF SEIZURES? :NO ANY HISTORY OF CARDIAC ISSUES OR EVENTS? :NO DO YOU HAVE ANY KIDNEY OR LIVER DISEASE? :NO DO YOU HAVE SLEEP APNEA? :NO ANY RECENT HEAD INJURY? :NO DO YOU HAVE ANY NEW INFECTIONS? :NO IS THERE A CHANCE YOU COULD BE ? :NO ARE YOU BREAST FEEDING? :NO WHEN DID YOU LAST EAT? : -11/14/20 @ 0730 WHEN DID YOU LAST DRINK? : -11/14/20 @0730 WHAT DID YOU LAST DRINK? : -WATER NAME OF PERSON DRIVING YOU HOME? : - DO YOU HAVE ANY OTHER QUESTIONS OR CONCERNS? : -"WILL IT HURT?' VERBAL REASSURANCE GIVEN CURRENT MEDICATIONS TAKING LISINOPRIL 12.5 1 TAB ORALLY ONCE DAILY TAKING NOVOLOG SUBCUTANEOUS 24AM AND 24PM TAKING LANTUS 32 UNITS SUBCUTANEOUS TAKING VITAMIN D 1000 UNIT TABLET 1 TAB ORALLY DAILY TAKING MULTIVITAMIN 1 TAB DAILY TAKING FISH OIL 1000 MG CAPSULE ORALLY DAILY TAKING OMEPRAZOLE 40 MG CAPSULE DELAYED RELEASE 1 TAB ORALLY DAILY TAKING PROCTOFOAM HC 1-1 % FOAM 1 APPLICATION NEEDED RECTAL FOUR TIMES A DAY TAKING DOCUSATE SODIUM 100 MG CAPSULE 1 CAPSULE NEEDED ORALLY BID TAKING GABAPENTIN (ONCE-DAILY) 300 MG TABLET 1 TABLET ORALLY ONCE A DAY, NOTES: X3 DAILY TAKING LIDOCAINE 5 % PATCH 1 PATCH REMOVE AFTER 12 HOURS EXTERNALLY ONCE A DAY TAKING SOMA 350 MG TABLET 1 TAB ORALLY AT BEDTIME NOT-TAKING NATHAN 500 MG CAPSULE DIRECTED ORALLY DAILY NOT-TAKING VITAMIN B COMPLEX - TABLET DIRECTED ORALLY DAILY NOT-TAKING METFORMIN HCL 1000 MG TABLET ORALLY 1 TAB AM 1 TAB PM NOT-TAKING SITAGLIPTIN PHOSPHATE NOT-TAKING GLYBURIDE-METFORMIN NOT-TAKING SIMVASTATIN 10 NOT-TAKING CALCIUM 600 + D MEDICATION LIST REVIEWED AND RECONCILED WITH THE PATIENT PAST MEDICAL HISTORY STROKE DIABETES MELLITUS HYPERLIPIDEMIA HYPERTENSION ALLERGIES N.K.D.A. VITAL SIGNS WT 154 LBS, HT 59 IN, BMI 31.10 INDEX, BP 141/80 MM HG, HR 93 /MIN, RR 18 /MIN, TEMP 96.6 F, OXYGEN SAT % 96%, BLOOD GLUCOSE LEVEL 137, SAFE IN ENV? (Y/N) Y, REVIEWED BY: CARLOS. EXAMINATION GENERAL EXAMINATION: THE PATIENT IS ALERT, ORIENTED TIMES THREE AND COOPERATIVE. LUNGS ARE CLEAR TO AUSCULTATION. HEART SHOWS REGULAR RHYTHM, NO MURMURS AND NO GALLOPS. ASSESSMENTS MYALGIA, OTHER SITE - M79.18 (PRIMARY) TREATMENT MYALGIA, OTHER SITE COMPLETION OF PROCEDURAL VISIT WHEN MEETS CRITERIACANDY COOK 11/14/2020 10:31:20 AM > CRITERIA MET AT 1020 THIS PROCEDURE WAS REVIEWED BY CANDY COOK ON 11/14/2020 AT 15:34 PM EDT PROCEDURES PAIN NURSING RECORD PROCEDURE IN ROOM 0830, PHYSICIAN IN ROOM 0958, START 1000, FINISH 1008, PHYSICIAN OUT OF ROOM 1009, OUT OF ROOM 1020, ECG N/A, PATIENT SHIELDED N/A, SAFETY STRAP N/A, PREP ALCOHOL DR. BARRIENTOS, DRESSING TEGADERM Rubi COOK RN LOC: 1. ALERT, ORIENTEDJOEY TOM 11/14/2020 9:48:16 AM > RESP: 1. REGULAR, NO DYSPNEAJOEY TOM 11/14/2020 9:48:20 AM > COLOR: 1. PINKJOEY TOM 11/14/2020 9:48:25 AM > SKIN: 1. WARM, DRYJOEY TOM 11/14/2020 9:48:29 AM > POSITION: 5. SITTINGJOEY TOM 11/14/2020 9:48:35 AM > VITALS: EXIT VITALS - HR 96, 124/74, 95%, R16 1020 TBCIPRIANORN FOREST COOK RN COMPLETION OF PROCEDURE APPOINTMENT: POST PAIN 0, DRESSING SITE DRY AND INTACT BETWEEN SHOULDERS POSTERIOR BACK, IV N/A, GAIT STEADY, TEACHING COMPLETED, PATIENT ACKNOWLEDGES UNDERSTANDING YES, PROCEDURE APPOINTMENT COMPLETED AT 1020 PN TRIGGER POINT INJECTION WITH STEROIDS PRE PROCEDURE DIAGNOSIS 1. MYALGIA 2. PAIN AT BILATERAL THORACIC AREA POST PROCEDURE DIAGNOSIS 1. MYALGIA 2. PAIN AT BILATERAL THORACIC AREA PROCEDURE TRIGGER POINT INJECTION AT BILATERAL THORACIC AREA SURGEON DR. LEONEL BARRIENTOS OFFICE ADMIN NONE ANESTHESIA LOCAL PRE PROCEDURE NOTE THE PATIENT HAS A HISTORY OF CHRONIC PAIN AT THE RIGHT AND LEFT THORACIC AREA. I EVALUATED THE PATIENT AND REVIEWED THE CHART. THERE IS EVIDENCE OF BANDS OF TISSUE WITH RESTRICTION OF MOVEMENT AND PRESENCE OF TRIGGER POINT AT THE RIGHT AND LEFT THORACIC AREA. I WENT OVER THE RISKS, ALTERNATIVES, AND BENEFITS ASSOCIATED WITH THIS PROCEDURE. THE PATIENT WOULD LIKE TO PROCEED AND GIVE CONSENT TO PERFORMED THE PROCEDURE. THE PATIENT DENIES UNEXPLAINABLE WEIGHT LOSS, FEVER, CHILLS, OR NEW CHANGES IN URINARY OR BOWEL CONTROL. THE PATIENT IS COVID-19 NEGATIVE DESCRIPTION OF PROCEDURE THE PATIENT WAS BROUGHT TO THE PROCEDURE ROOM AND PLACED IN THE SITTING POSITION. THE AREA WAS CLEANED WITH ALCOHOL. THE PROCEDURE WAS DONE USING ASEPTIC STERILE TECHNIQUE. A TIMEOUT WAS PERFORMED WHERE THE CONSENTED SITE WAS VERIFIED WITH EVERYONE IN THE ROOM. USING A 25-GAUGE NEEDLE, TRIGGER POINTS WERE INJECTED AT THE RIGHT AND LEFT THORACIC AREA WITH A TOTAL OF 40 ML OF BUPIVACAINE 0.25% AND KENALOG 40 MG. THE MEDICATIONS WERE VERIFIED WITH THE NURSE. THERE WAS NO EVIDENCE OF BLOOD OR PARESTHESIA DURING THE PROCEDURE. THE PATIENT WAS SENT TO THE RECOVERY ROOM. THE PATIENT WAS MOVING THE EXTREMITIES AND DOING WELL. THERE WERE NO COMPLICATIONS DURING THE PROCEDURE. ESTIMATED BLOOD LOSS WAS LESS THAN 5 ML POST PROCEDURE NOTE THE PROCEDURE DONE WAS DISCUSSED WITH THE PATIENT. THE PATIENT WILL BE SEEN IN A FOLLOW UP IN THE NEXT FEW WEEKS. I AM LOOKING FOR LONG LASTING PAIN RELIEF FOR THE PATIENT WITH THIS INTERVENTION. INSTRUCTIONS WERE GIVEN, QUESTIONS WERE ANSWERED, AND THE PATIENT EXPRESSED UNDERSTANDING AND AGREES WITH THE PLAN. I, MARYCRUZ NDIAYE, DOCUMENTED THE ABOVE INFORMATION ACTING A SCRIBE FOR DR. BARRIENTOS. I HAVE REVIEWED THE ABOVE DOCUMENT, WRITTEN BY MARYCRUZ NDIAYE, BRAZER [employer]ODUCTION LINE, AND I VERIFY THAT IT IS ACCURATE PROCEDURE CODES 32425 INJ TRIGGER POINT / MUSCL DISPOSITION & COMMUNICATION FOLLOW UP FOLLOW UP WITH INSPECTOR GLASS OR MIRROR (REASON: POST TRIGGER POINT INJECTIONS BILATERAL THORACIC) ELECTRONICALLY SIGNED BY LEONEL BARRIENTOS MD, MD ON 11/14/2020 AT 03:12 PM EDT DISCLAIMER : THIS IS A VISIT SUMMARY EXTRACTED FROM THE [employer] CHART. IT IS NOT A COPY OF THE [employer] PROGRESS NOTE. HALLIED
== END ==
LOC: M PAIN 08:30
PROVIDERS: ATTEND Anesthesiology
DX: M79.18 Myalgia, other site (principal); E11.9 Type 2 diabetes mellitus without complications; Z86.73 Personal history of transient ischemic attack (TIA), and cerebral infarction without residual deficits; Z79.4 Long term (current) use of insulin; Z79.899 Other long term (current) drug therapy
CPT/HCPCS: 20552; J3301

== ENCOUNTER → 2020-11-27 | Outpatient (CLI) | payer MEDICARE, OTHER ==
[~2020-11-27] MED LIST changes: -BUPIVACAINE HCL 0.25% 10ML VIAL As Ordered ONE; -BUPIVACAINE HCL 0.25% 30ML VIAL As Ordered ONE; -TRIAMCINOLONE ACETONIDE SUSP 40 MG/ML VIAL (J3301) As Ordered ONE
--- NOTE | 2020-11-29 01:32 | ECWPNPC ---
PATIENT NAME: ANDRÉS KNIGHT : 1950 GENDER: FEMALE VISIT DATE: 11/27/2020 DISCHARGE DATE: 11/27/20943 VISIT LOCKED DATE TIME: PHYSICIAN: MICKI GANT RESOURCE: MICKI GANT REASON FOR APPOINTMENT 1. POST TRIGGER POINT INJECTIONS HISTORY OF PRESENT ILLNESS GENERAL: HERE FOR POST PROCEDURE FOLLOW-UP. HAD TRIGGER POINT INJECTIONS TO HER UPPER BACK ON 11/14/2020. REPORTING MARKED REDUCTION IN PAIN IN THAT REGION. HAS BEEN SUFFERING OVER THE PAST 2 WEEKS WITH SIGNIFICANT LEFT LOW BACK BUTTOCK AND THIGH PAIN. PAIN IS AWAKENING HER AT NIGHT. HAS MRI OF THE LS-SPINE SCHEDULED FOR NEXT WEEK. -. FALL RISK SCREENING: SCREENING : NO FALLS REPORTED IN THE LAST YEAR. PAIN SCREENING: PATIENT HAS A COMPLAINT OF ACUTE OR CHRONIC PAIN :YES LOCATION OF PAIN:MID BACK, LOW BACK INTENSITY OF PAIN (SCALE OF 1 TO 10):6 WHAT DOES YOUR PAIN FEEL LIKE:ACHING, BURNING, CONTINOUS, THROBBING DURATION:CONTINOUS, CONSTANT, ALL DAY PAIN IS INCREASED BY:ACTIVITIES PAIN IS DECREASED BY:OTHERS RESTING HELPS NURSING NOTE: -. PAIN CENTER INTAKE QUESTIONS: DO YOU HAVE A HISTORY OF MRSA? :NO DO YOU TAKE A BLOOD THINNERS? :NO DO YOU HAVE ANY BLEEDING DISORDERS? :NO ANY NEW NUMBNESS OR WEAKNESS IN YOUR LEGS OR ARMS? :YES PAIN GOES DOWN LEFT HIP DOWN THE BACK OF LEGS ANY PACEMAKER,DEFIBRILLATOR, OR DORSAL COLUMN STIMULATOR? :NO DO YOU HAVE ANY RASHES OR OPEN SORES? :NO ARE YOU ALLERGIC TO IV DYE? :NO ARE YOU DIABETIC? :YES ANY NEW PROBLEMS WITH YOUR MEDICATIONS? :NO HAVE YOU RECEIVED A VACCINE IN THE PAST 30 DAYS? :YES 2ND COVID 11/04/2020 DO YOU PLAN TO RECEIVE A VACCINE IN THE NEXT 21 DAYS? :NO DO YOU NEED ANY PRESCRIPTION? :YES SOMA DO YOU TAKE ANY IMMUNOSUPPRESSIVE MEDICATIONS? :NO IS THERE A CHANCE YOU COULD BE ? :NO ARE YOU BREAST FEEDING? :NO CURRENT MEDICATIONS TAKING LISINOPRIL 12.5 1 TAB ORALLY ONCE DAILY TAKING NOVOLOG SUBCUTANEOUS 24AM AND 24PM TAKING LANTUS 32 UNITS SUBCUTANEOUS TAKING VITAMIN D 1000 UNIT TABLET 1 TAB ORALLY DAILY TAKING MULTIVITAMIN 1 TAB DAILY TAKING FISH OIL 1000 MG CAPSULE ORALLY DAILY TAKING OMEPRAZOLE 40 MG CAPSULE DELAYED RELEASE 1 TAB ORALLY DAILY TAKING PROCTOFOAM HC 1-1 % FOAM 1 APPLICATION NEEDED RECTAL FOUR TIMES A DAY TAKING DOCUSATE SODIUM 100 MG CAPSULE 1 CAPSULE NEEDED ORALLY BID TAKING GABAPENTIN (ONCE-DAILY) 300 MG TABLET 1 TABLET ORALLY ONCE A DAY, NOTES: X3 DAILY TAKING LIDOCAINE 5 % PATCH 1 PATCH REMOVE AFTER 12 HOURS EXTERNALLY ONCE A DAY TAKING SOMA 350 MG TABLET 1 TAB ORALLY AT BEDTIME NOT-TAKING NATHAN 500 MG CAPSULE DIRECTED ORALLY DAILY NOT-TAKING VITAMIN B COMPLEX - TABLET DIRECTED ORALLY DAILY NOT-TAKING METFORMIN HCL 1000 MG TABLET ORALLY 1 TAB AM 1 TAB PM NOT-TAKING SITAGLIPTIN PHOSPHATE NOT-TAKING GLYBURIDE-METFORMIN NOT-TAKING SIMVASTATIN 10 NOT-TAKING CALCIUM 600 + D MEDICATION LIST REVIEWED AND RECONCILED WITH THE PATIENT PAST MEDICAL HISTORY STROKE DIABETES MELLITUS HYPERLIPIDEMIA HYPERTENSION BACK PAIN ALLERGIES N.K.D.A. SOCIAL HISTORY GENERAL: TOBACCO USE ARE YOU A:NONSMOKER LATEX QUESTIONNAIRE LATEX ALLERGY : HAVE YOU EVER DEVELOPED ANY TYPE OF REACTION AFTER HANDLING LATEX PRODUCTS SUCH RUBBER GLOVES, CONDOMS, DIAPHRAGMS, BALLOONS, SOCKS, OR UNDERWEAR?NO LATEX ALLERGY : HAVE YOU EVER DEVELOPED ANY TYPE OF REACTION DURING OR AFTER DENTAL APPOINTMENT, VAGINAL/RECTAL EXAMINATION, SURGICAL PROCEDURE, OR ANY OTHER EXPOSURE?NO LATEX RISK : HAVE YOU EVER HAD ANY DIFFICULTY BREATHING OR HIVES AFTER EATING OR HANDLING ANY FRUITS, OR VEGETABLES; SUCH KIWI, BANANAS, STONE FRUITS, OR CHESTNUTSNO LATEX RISK : DO YOU HAVE A PREVIOUS PERSONAL HISTORY OF MORE THAN NINE SURGERIES, SPINA BIFIDA, OR REPEATED CATHERIZATIONS? NO LATEX RISK : ARE YOU FREQUENTLY EXPOSED TO LATEX PRODUCTS IN YOUR OCCUPATION?NO DATE ASKED : 11/27/2020 ALCOHOL USE: NO. ALCOHOL SCREENING DID YOU HAVE A DRINK CONTAINING ALCOHOL IN THE PAST YEAR?NO POINTS0 INTERPRETATIONNEGATIVE RECREATIONAL DRUG USE DRUG USE?YES CAFFEINE CAFFEINE USE?YES COFFEE- SOMETIMES LEARNING BARRIERS / SPECIAL NEEDS BARRIERS TO LEARNING?NO HEARING IMPAIRED?NO VISION IMPAIRED?YES : READING COGNITIVELY IMPAIRED?NO READINESS TO LEARN?YES LEARNING PREFERENCES?YES :TAPES/VIDEOS LEARNING CAPABILITIES PRESENT?YES EMOTIONAL BARRIERS?NO SPECIAL DEVICES?NO PRISONER CLASSIFICATION INTERVIEWER NEEDED?NO EXERCISE: WALK- 3 MILES DAILY, SWIMMING DAILY. REVIEW OF SYSTEMS CONSTITUTIONAL: ANY RECENT FEVER NO . CHILLS NO . WEIGHT CHANGE OF UNKNOWN REASONS NO . GASTROENTEROLOGY: NEW UNEXPLAINABLE CHANGES IN BOWEL CONTROL NO . CONSTIPATION NO . GENITOURINARY: ANY NEW CHANGE IN BLADDER CONTROL? NO . NEUROLOGY: NEW ONSET DIZZINESS OR NEUROLOGICAL CHANGES NOT MENTIONED NO . NEW NUMBNESS OR PAIN PATTERNS NOT MENTIONED AND PERTINENT TO TODAY'S VISIT NO . CARDIOLOGY: NEW CHEST PRESSURE NO . PATIENT DENIES NO . RESPIRATORY: UNEXPLAINABLE COUGH NO . NEW SHORTNESS OF BREATH NO . VITAL SIGNS WT 155.6 LBS, HT 59 IN, BMI 31.42 INDEX, BP 125/75 MM HG, HR 69 /MIN, RR 18 /MIN, TEMP 96.4 F, OXYGEN SAT % 96%, SAFE IN ENV? (Y/N) YES, NA INITIALS [place] 09:10T.CHRISTINA KIRKLAND. EXAMINATION GENERAL EXAMINATION: GENERALNO ACUTE DISTRESS, WELL NOURISHED AND HYDRATED. PSYCHAPPROPRIATE MOOD AND AFFECT . LUNGS:CLEAR TO AUSCULTATION BILATERALLY, NO WHEEZES, RHONCHI, RALES. HEART:NO MURMURS, REGULAR RATE AND RHYTHM. MUSCULOSKELETAL: TRIGGER POINTS: LEFT LOW BACK, LEFT BUTTOCK. PAIN IS AGGRAVATED IN THIS REGION WITH RANGE OF JOINT MOTION OF THE SPINE. ASSESSMENTS MYALGIA, OTHER SITE - M79.18 (PRIMARY) OTHER CHRONIC PAIN - G89.29 TREATMENT MYALGIA, OTHER SITE REFILL SOMA TABLET, 350 MG, 1 TAB, ORALLY, AT BEDTIME, 30 DAYS, 30, REFILLS 2 NOTES: TRIGGER POINT INJECTIONS LEFT LOW BACK,LEFT BUTTOCK,LEFT PIRIFORMIS. OTHER CHRONIC PAIN PAIN PROCEDURE LOGDATE OF PROCEDURE11/14/2020ROCEDURE:TRIGGER POINT INJECTION BILATERAL THORACICAMOUNT OF PRE SEDATE0/0RESULT:MARKED REDUCTION IN PAIN PROCEDURE CODES FA211 ESTABILISHED PATIENT [facility] CHARGE DISPOSITION & COMMUNICATION FOLLOW UP POST PROCEDURE (REASON: TRIGGER POINT INJECTIONS LEFT LOW BACK,LEFT BUTTOCK,LEFT PIRIFORMIS) ELECTRONICALLY SIGNED BY KATHERIN CRISTINA ON 11/28/2020 AT 04:16 PM EDT DISCLAIMER : THIS IS A VISIT SUMMARY EXTRACTED FROM THE [employer] CHART. IT IS NOT A COPY OF THE [employer] PROGRESS NOTE. KATRIN
== END ==
LOC: M PAIN 09:45
PROVIDERS: ATTEND Nurse Practitioner Family
DX: G89.29 Other chronic pain (principal); M79.18 Myalgia, other site; E11.9 Type 2 diabetes mellitus without complications; E78.5 Hyperlipidemia, unspecified; I10 Essential (primary) hypertension; Z86.73 Personal history of transient ischemic attack (TIA), and cerebral infarction without residual deficits; M54.9 Dorsalgia, unspecified; Z79.899 Other long term (current) drug therapy

== ENCOUNTER → 2020-12-02 | Outpatient (REF) | payer MEDICARE, OTHER ==
[2020-12-02 19:31] LABS: ALBUMIN 3.8 GM/DL (3.2-5.2); BILIRUBIN,DIRECT 0.2 MG/DL (0.0-0.2); BILIRUBIN,TOTAL 0.5 MG/DL (0.2-1.0); TOTAL PROTEIN 7.4 GM/DL (6.4-8.2)
== END ==
LOC: M SFHCRHEU 13:05
PROVIDERS: ATTEND Internal Medicine
DX: R74.01 Elevation of levels of liver transaminase levels (principal)
CPT/HCPCS: 80076; G0463

== ENCOUNTER → 2020-12-05 | Outpatient (CLI) | payer MEDICARE, OTHER | LOC: M LABSMTC 09:59 | PROVIDERS: ATTEND Anesthesiology | DX: Z01.812 Encounter for preprocedural laboratory examination (principal); Z20.822 Contact with and (suspected) exposure to COVID-19 ==

== ENCOUNTER → 2020-12-06 | Outpatient (CLI) | payer MEDICARE, OTHER ==
--- NOTE | 2020-12-06 12:18 | REP ---
INDICATION: THORACIC SPINE PAIN. COMPARISON: None. TECHNIQUE: Sagittal T1, T2, STIR, axial T1 and axial T2 weighted images of the thoracic spine are obtained. FINDINGS: There is sork-[id number] multilevel degenerative disc disease seen throughout thoracic spine with diffuse disc bulges and loss of disc height. Vertebral heights are overall preserved. No earnestine malalignments. On the sagittal T2 weighted images the canal narrows at multiple levels but no definite high-grade or limiting canal stenosis. There is a anterior cervical fusion, C3 through C6 levels. On the review of axial images, At T1-2 disc-osteophyte complex with a central protrusion with [id number] canal narrowing and no significant foraminal narrowing. At T2-3 similarly central disc protrusion with moderate canal narrowing and no significant foraminal narrowing. Central protrusion may represent the posterior longitudinal ligament. At T3-4 no significant canal or foraminal narrowing At T4-5 no significant canal or foraminal narrowing At T5-6, T6-7, T7-T8 disc bulge with mild canal narrowing and mild bilateral foraminal narrowing At T8-9, T9-T10, T10-T11 diffuse disc bulge and ossification of the posterior longitudinal ligament with moderate canal narrowing. There is hypertrophic osteophyte formation on the left at this level. At T11-T12 hypertrophic osteophyte on the left. At T12-L1 no significant canal or foraminal narrowing. IMPRESSION: No acute findings. Degenerative disc disease with thickening and likely calcification of the posterior longitudinal ligament, with moderate canal narrowing at T1-2 and T2-3 levels as well as T10-T11 and T11-T12 levels. At the remaining levels, diffuse disc bulges. There is also hypertrophic osteophyte formation on the left T8 through T12. <Electronically signed by Demond Goel > 12/06/20 9920
== END ==
LOC: M PLARAD 09:24
PROVIDERS: ATTEND Nurse Practitioner Family
DX: M51.34 Other intervertebral disc degeneration, thoracic region (principal)

== ENCOUNTER → 2020-12-10 | Outpatient (CLI) | payer MEDICARE, OTHER ==
[~2020-12-10] MED LIST changes: +BUPIVACAINE HCL 0.25% 10ML VIAL As Ordered ONE; +BUPIVACAINE HCL 0.25% 30ML VIAL As Ordered ONE; +TRIAMCINOLONE ACETONIDE SUSP 40 MG/ML VIAL (J3301) As Ordered ONE
--- NOTE | 2020-12-20 01:46 | ECWPNPC ---
PATIENT NAME: ANDRÉS KNIGHT : 1950 GENDER: FEMALE VISIT DATE: 12/10/2020 DISCHARGE DATE: 12/10/20 0000 VISIT LOCKED DATE TIME: PHYSICIAN: LEONEL BARRIENTOS MD RESOURCE: LEONEL BARRIENTOS MD REASON FOR APPOINTMENT 1. TRIGGER POINT INJECTIONS LEFT LOW BACK,LEFT BUTTOCK,LEFT PIRIFORMIS HISTORY OF PRESENT ILLNESS GENERAL: -. FALL RISK SCREENING: SCREENING : NO FALLS REPORTED IN THE LAST YEAR. PAIN SCREENING: PATIENT HAS A COMPLAINT OF ACUTE OR CHRONIC PAIN :YES LOCATION OF PAIN:MID BACK, LEFT HIP, LEG(S) INTENSITY OF PAIN (SCALE OF 1 TO 10): 5 IN BACK, 7-8 IN LEG WHAT DOES YOUR PAIN FEEL LIKE:SHARP DURATION:CONTINOUS PAIN IS INCREASED BY:ACTIVITIES STAIRS PAIN IS DECREASED BY: NOTHING NURSING NOTE: -. PAIN CENTER INTAKE QUESTIONS: DO YOU HAVE A HISTORY OF MRSA? :NO DO YOU TAKE A BLOOD THINNERS? :NO DO YOU HAVE ANY BLEEDING DISORDERS? :NO ANY NEW NUMBNESS OR WEAKNESS IN YOUR LEGS OR ARMS? :NO ANY PACEMAKER,DEFIBRILLATOR, OR DORSAL COLUMN STIMULATOR? :NO DO YOU HAVE ANY RASHES OR OPEN SORES? :NO ARE YOU ALLERGIC TO IV DYE? :YES ARE YOU DIABETIC? :YES FSBS 132 AT 0920 ANY NEW PROBLEMS WITH YOUR MEDICATIONS? :NO HAVE YOU RECEIVED A VACCINE IN THE PAST 30 DAYS? :NO DO YOU PLAN TO RECEIVE A VACCINE IN THE NEXT 21 DAYS? :NO DO YOU TAKE ANY IMMUNOSUPPRESSIVE MEDICATIONS? :NO ANY HISTORY OF SEIZURES? :NO ANY HISTORY OF CARDIAC ISSUES OR EVENTS? :NO DO YOU HAVE ANY KIDNEY OR LIVER DISEASE? :NO DO YOU HAVE SLEEP APNEA? :NO ANY RECENT HEAD INJURY? :NO DO YOU HAVE ANY NEW INFECTIONS? :NO IS THERE A CHANCE YOU COULD BE ? :NO ARE YOU BREAST FEEDING? :NO WHEN DID YOU LAST EAT? : -72912/10/20 WHEN DID YOU LAST DRINK? : -929 SIP WITH MEDS WHAT DID YOU LAST DRINK? : -WATER NAME OF PERSON DRIVING YOU HOME? : - DO YOU HAVE ANY OTHER QUESTIONS OR CONCERNS? : - CURRENT MEDICATIONS TAKING VITAMIN B COMPLEX - TABLET DIRECTED ORALLY DAILY TAKING LISINOPRIL 12.5 1 TAB ORALLY ONCE DAILY, NOTES: 12/10 929 TAKING NOVOLOG SUBCUTANEOUS 24AM AND 24PM, NOTES: 12/09 TAKING LANTUS 32 UNITS SUBCUTANEOUS , NOTES: 12/08 TAKING VITAMIN D 1000 UNIT TABLET 1 TAB ORALLY DAILY TAKING MULTIVITAMIN 1 TAB DAILY TAKING FISH OIL 1000 MG CAPSULE ORALLY DAILY TAKING OMEPRAZOLE 40 MG CAPSULE DELAYED RELEASE 1 TAB ORALLY DAILY TAKING PROCTOFOAM HC 1-1 % FOAM 1 APPLICATION NEEDED RECTAL FOUR TIMES A DAY TAKING DOCUSATE SODIUM 100 MG CAPSULE 1 CAPSULE NEEDED ORALLY BID TAKING GABAPENTIN (ONCE-DAILY) 300 MG TABLET 1 TABLET ORALLY ONCE A DAY TAKING SOMA 350 MG TABLET 1 TAB ORALLY AT BEDTIME, NOTES: 12/08 TAKING LIDOCAINE 5 % PATCH 1 PATCH REMOVE AFTER 12 HOURS EXTERNALLY ONCE A DAY, NOTES: 12/08 NOT-TAKING NATAHN 500 MG CAPSULE DIRECTED ORALLY DAILY NOT-TAKING METFORMIN HCL 1000 MG TABLET ORALLY 1 TAB AM 1 TAB PM NOT-TAKING SITAGLIPTIN PHOSPHATE NOT-TAKING GLYBURIDE-METFORMIN NOT-TAKING SIMVASTATIN 10 NOT-TAKING CALCIUM 600 + D MEDICATION LIST REVIEWED AND RECONCILED WITH THE PATIENT PAST MEDICAL HISTORY STROKE DIABETES MELLITUS HYPERLIPIDEMIA HYPERTENSION BACK PAIN ALLERGIES N.K.D.A. SURGICAL HISTORY C SECTION LT. [facility]EARM 10/2018 CERVICAL SURGERY 2018 FAMILY HISTORY BROTHER- CANCER. SOCIAL HISTORY GENERAL: TOBACCO USE ARE YOU A:NONSMOKER LATEX QUESTIONNAIRE LATEX ALLERGY : HAVE YOU EVER DEVELOPED ANY TYPE OF REACTION AFTER HANDLING LATEX PRODUCTS SUCH RUBBER GLOVES, CONDOMS, DIAPHRAGMS, BALLOONS, SOCKS, OR UNDERWEAR?NO LATEX ALLERGY : HAVE YOU EVER DEVELOPED ANY TYPE OF REACTION DURING OR AFTER DENTAL APPOINTMENT, VAGINAL/RECTAL EXAMINATION, SURGICAL PROCEDURE, OR ANY OTHER EXPOSURE?NO LATEX RISK : HAVE YOU EVER HAD ANY DIFFICULTY BREATHING OR HIVES AFTER EATING OR HANDLING ANY FRUITS, OR VEGETABLES; SUCH KIWI, BANANAS, STONE FRUITS, OR CHESTNUTSNO LATEX RISK : DO YOU HAVE A PREVIOUS PERSONAL HISTORY OF MORE THAN NINE SURGERIES, SPINA BIFIDA, OR REPEATED CATHERIZATIONS? NO LATEX RISK : ARE YOU FREQUENTLY EXPOSED TO LATEX PRODUCTS IN YOUR OCCUPATION?NO DATE ASKED : 12/10/2020 ALCOHOL USE: NO. ALCOHOL SCREENING DID YOU HAVE A DRINK CONTAINING ALCOHOL IN THE PAST YEAR?NO POINTS0 INTERPRETATIONNEGATIVE RECREATIONAL DRUG USE DRUG USE?YES CAFFEINE CAFFEINE USE?YES COFFEE- SOMETIMES LEARNING BARRIERS / SPECIAL NEEDS BARRIERS TO LEARNING?NO HEARING IMPAIRED?NO VISION IMPAIRED?YES : READING COGNITIVELY IMPAIRED?NO READINESS TO LEARN?YES LEARNING PREFERENCES?YES :TAPES/VIDEOS LEARNING CAPABILITIES PRESENT?YES EMOTIONAL BARRIERS?NO SPECIAL DEVICES?NO MED SURG RN NEEDED?NO EXERCISE: WALK- 3 MILES DAILY, SWIMMING DAILY. HOSPITALIZATION/MAJOR DIAGNOSTIC PROCEDURE SURGICAL RELATED VITAL SIGNS WT 157.4 LBS, HT 59 IN, BMI 31.79 INDEX, BP 133/84 MM HG, HR 66 /MIN, RR 18 /MIN, TEMP 96.9 F, OXYGEN SAT % 97%, SAFE IN ENV? (Y/N) YES, NA INITIALS HI 11:15, REVIEWED BY: OLIVER MAY. EXAMINATION GENERAL: A HISTORY AND PHYSICAL EXAM ON THE PATIENT WAS DONE ON 11/27/2020 (DATE OF ORIGINAL ASSESSMENT) IN PREPARATION OF SURGERY/PROCEDURE. I HAVE NOW REASSESSED THIS PATIENT'S HEALTH STATUS AND PERFORMED AN UPDATED EXAM TODAY. ALL CHANGES IN THE PATIENT'S HISTORY, PHYSICAL EXAM, PRE-EXISTING CONDITONS, AND INDICATIONS/CONTRAINDICATIONS TO THE PLANNED PROCEDURE AND ANESTHESIA ARE DOCUMENTED AND EVALUATED BELOW. I ATTEST TO THE ADEQUACY AND APPROPRIATENESS OF MY ASSESSMENT, AND CONFIRM THE NECESSITY FOR THE PLANNED PROCEDURE. THE PATIENT IS ALERT, ORIENTED TIMES THREE AND COOPERATIVE. LUNGS ARE CLEAR TO AUSCULTATION. HEART SHOWS REGULAR RHYTHM, NO MURMURS AND NO GALLOPS. ASSESSMENTS MYALGIA, UNSPECIFIED SITE - M79.10 (PRIMARY) TREATMENT MYALGIA, UNSPECIFIED SITE COMPLETION OF PROCEDURAL VISIT WHEN MEETS CRITERIA PROCEDURES PAIN NURSING RECORD PROCEDURE IN ROOM 1500, PHYSICIAN IN ROOM 1618, START 1623, FINISH 1626, PHYSICIAN OUT OF ROOM 1626, OUT OF ROOM 1645, ECG N/A, PATIENT SHIELDED N/A, SAFETY STRAP N/A, PREP ALCOHOL DR. BARRIENTOS, DRESSING TEGADERM Allyson CORREA RN LOC: 1. ALERT, ORIENTED RESP: 1. REGULAR, NO DYSPNEA COLOR: 1. PINK SKIN: 1. WARM, DRY POSITION: 3. LATERAL LEFT VITALS: ADDISON CORREA 12/10/2020 430:40 PM > 145/83 HR 61 16 97% R/A D/C V/S COMPLETION OF PROCEDURE APPOINTMENT: POST PAIN 5 NOTES LOW BACK PAIN 5/10, LEFT LEG PAIN 6-7, DRESSING SITE DRY AND INTACT, IV N/A, GAIT STEADY, TEACHING COMPLETED, PATIENT ACKNOWLEDGES UNDERSTANDING YES, PROCEDURE APPOINTMENT COMPLETED AT 1645 PN TRIGGER POINT INJECTION WITH STEROIDS PRE PROCEDURE DIAGNOSIS 1. MYALGIA 2. PAIN AT LEFT LOW BACK AREA, LEFT BUTTOCK AREA AND LEFT PIRIFORMIS AREA POST PROCEDURE DIAGNOSIS 1. MYALGIA 2. PAIN AT LEFT LOW BACK AREA, LEFT BUTTOCK AREA AND LEFT PIRIFORMIS AREA PROCEDURE TRIGGER POINT INJECTION AT LEFT LOW BACK AREA, LEFT BUTTOCK AREA AND LEFT PIRIFORMIS AREA SURGEON DR. LEONEL BARRIENTOS MAGNETIC TAPE COMPOSER OPERATOR NONE ANESTHESIA LOCAL PRE PROCEDURE NOTE THE PATIENT HAS A HISTORY OF CHRONIC PAIN AT THE LEFT LOW BACK AREA, LEFT BUTTOCK AREA AND LEFT PIRIFORMIS AREA. I EVALUATED THE PATIENT AND REVIEWED THE CHART. THERE IS EVIDENCE OF BANDS OF TISSUE WITH RESTRICTION OF MOVEMENT AND PRESENCE OF TRIGGER POINT AT THE LEFT LOW BACK AREA, LEFT BUTTOCK AREA AND LEFT PIRIFORMIS AREA . I WENT OVER THE RISKS, ALTERNATIVES, AND BENEFITS ASSOCIATED WITH THIS PROCEDURE. THE PATIENT WOULD LIKE TO PROCEED AND GIVE CONSENT TO PERFORMED THE PROCEDURE. THE PATIENT DENIES UNEXPLAINABLE WEIGHT LOSS, FEVER, CHILLS, OR NEW CHANGES IN URINARY OR BOWEL CONTROL. THE PATIENT IS COVID-19 NEGATIVE DESCRIPTION OF PROCEDURE THE PATIENT WAS BROUGHT TO THE PROCEDURE ROOM AND PLACED IN THE SITTING POSITION. THE AREA WAS CLEANED WITH ALCOHOL. THE PROCEDURE WAS DONE USING ASEPTIC STERILE TECHNIQUE. A TIMEOUT WAS PERFORMED WHERE THE CONSENTED SITE WAS VERIFIED WITH EVERYONE IN THE ROOM. USING A 25-GAUGE NEEDLE, TRIGGER POINTS WERE INJECTED AT THE LEFT LOW BACK AREA, LEFT BUTTOCK AREA AND LEFT PIRIFORMIS AREA WITH A TOTAL OF 40 ML OF BUPIVACAINE 0.25% AND KENALOG 40 MG. THE MEDICATIONS WERE VERIFIED WITH THE NURSE. THERE WAS NO EVIDENCE OF BLOOD OR PARESTHESIA DURING THE PROCEDURE. THE PATIENT WAS SENT TO THE RECOVERY ROOM. THE PATIENT WAS MOVING THE EXTREMITIES AND DOING WELL. THERE WERE NO COMPLICATIONS DURING THE PROCEDURE. ESTIMATED BLOOD LOSS WAS LESS THAN 5 ML POST PROCEDURE NOTE DEPENDING ON THE RESULTS, CONSIDER A LUMBAR MRI AND AN EPIDURAL. THE PROCEDURE DONE WAS DISCUSSED WITH THE PATIENT. THE PATIENT WILL BE SEEN IN A FOLLOW UP IN THE NEXT FEW WEEKS. I AM LOOKING FOR LONG LASTING PAIN RELIEF FOR THE PATIENT WITH THIS INTERVENTION. INSTRUCTIONS WERE GIVEN, QUESTIONS WERE ANSWERED, AND THE PATIENT EXPRESSED UNDERSTANDING AND AGREES WITH THE PLAN. I, MARYCRUZ NDIAYE, DOCUMENTED THE ABOVE INFORMATION ACTING A SCRIBE FOR DR. BARRIENTOS. 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 IT IS NOT A COPY OF THE [employer] PROGRESS NOTE. KATRIN
== END ==
LOC: M PAIN 11:20
PROVIDERS: ATTEND Anesthesiology
DX: M79.18 Myalgia, other site (principal); E11.9 Type 2 diabetes mellitus without complications; Z79.4 Long term (current) use of insulin; Z79.899 Other long term (current) drug therapy
CPT/HCPCS: 20553; J3301

== ENCOUNTER → 2021-01-27 | Outpatient (CLI) | payer MEDICARE, OTHER ==
[~2021-01-27] MED LIST changes: -BUPIVACAINE HCL 0.25% 10ML VIAL As Ordered ONE; -BUPIVACAINE HCL 0.25% 30ML VIAL As Ordered ONE; -TRIAMCINOLONE ACETONIDE SUSP 40 MG/ML VIAL (J3301) As Ordered ONE
--- NOTE | 2021-01-28 02:46 | ECWPNPC ---
PATIENT NAME: ANDRÉS KNIGHT : 1950 GENDER: FEMALE VISIT DATE: 01/27/2021 DISCHARGE DATE: 01/27/21 1000 VISIT LOCKED DATE TIME: PHYSICIAN: MICKI GANT RESOURCE: MICKI GANT REASON FOR APPOINTMENT 1. POST TRIGGER POINT INJECTIONS LEFT LOW BACK,LEFT BUTTOCK,LEFT PIRIFORMIS HISTORY OF PRESENT ILLNESS GENERAL: HERE FOR POST PROCEDURE FOLLOW-UP. HAD TRIGGER POINT INJECTIONS LEFT LOW BACK, LEFT BUTTOCK AND LEFT PIRIFORMIS ON 12/10/2020. REPORTING MARKED REDUCTION IN PAIN AND ACTUALLY NOT HAVING ANY PAIN TODAY. CONTINUES TO SWIM DAILY. OVERALL VERY HAPPY WITH OUTCOME. STATES SHE IS TAKING MUSCLE RELAXANT, CARISOPRODOL AT NIGHTTIME. WE DISCUSSED STOPPING THIS TO SEE IF SHE WOULD BE OKAY WITHOUT IT. -. FALL RISK SCREENING: SCREENING : NO FALLS REPORTED IN THE LAST YEAR. PAIN SCREENING: PATIENT HAS A COMPLAINT OF ACUTE OR CHRONIC PAIN :NO PATIENT DENIES PAIN AT THIS TIME. NURSING NOTE: -. PAIN CENTER INTAKE QUESTIONS: DO YOU HAVE A HISTORY OF MRSA? :NO DO YOU TAKE A BLOOD THINNERS? :NO DO YOU HAVE ANY BLEEDING DISORDERS? :NO ANY NEW NUMBNESS OR WEAKNESS IN YOUR LEGS OR ARMS? :NO ANY PACEMAKER,DEFIBRILLATOR, OR DORSAL COLUMN STIMULATOR? :NO DO YOU HAVE ANY RASHES OR OPEN SORES? :NO ARE YOU ALLERGIC TO IV DYE? :NO ARE YOU DIABETIC? :YES ANY NEW PROBLEMS WITH YOUR MEDICATIONS? :NO HAVE YOU RECEIVED A VACCINE IN THE PAST 30 DAYS? :NO 2ND COVID 11/04/2020 DO YOU PLAN TO RECEIVE A VACCINE IN THE NEXT 21 DAYS? :NO DO YOU NEED ANY PRESCRIPTION? :NO DO YOU TAKE ANY IMMUNOSUPPRESSIVE MEDICATIONS? :NO IS THERE A CHANCE YOU COULD BE ? :NO ARE YOU BREAST FEEDING? :NO CURRENT MEDICATIONS TAKING VITAMIN B COMPLEX - TABLET DIRECTED ORALLY DAILY TAKING LISINOPRIL 12.5 1 TAB ORALLY ONCE DAILY, NOTES: 12/10 0930 TAKING NOVOLOG SUBCUTANEOUS 24AM AND 24PM, NOTES: 12/09 TAKING LANTUS 32 UNITS SUBCUTANEOUS , NOTES: 12/08 TAKING VITAMIN D 1000 UNIT TABLET 1 TAB ORALLY DAILY TAKING MULTIVITAMIN 1 TAB DAILY TAKING FISH OIL 1000 MG CAPSULE ORALLY DAILY TAKING OMEPRAZOLE 40 MG CAPSULE DELAYED RELEASE 1 TAB ORALLY DAILY TAKING PROCTOFOAM HC 1-1 % FOAM 1 APPLICATION NEEDED RECTAL FOUR TIMES A DAY TAKING DOCUSATE SODIUM 100 MG CAPSULE 1 CAPSULE NEEDED ORALLY BID TAKING GABAPENTIN (ONCE-DAILY) 300 MG TABLET 1 TABLET ORALLY ONCE A DAY TAKING SOMA 350 MG TABLET 1 TAB ORALLY AT BEDTIME, NOTES: 12/08 TAKING LIDOCAINE 5 % PATCH 1 PATCH REMOVE AFTER 12 HOURS EXTERNALLY ONCE A DAY, NOTES: 12/08 UNKNOWN NATHAN 500 MG CAPSULE DIRECTED ORALLY DAILY UNKNOWN METFORMIN HCL 1000 MG TABLET ORALLY 1 TAB AM 1 TAB PM UNKNOWN SITAGLIPTIN PHOSPHATE UNKNOWN GLYBURIDE-METFORMIN UNKNOWN SIMVASTATIN 10 UNKNOWN CALCIUM 600 + D MEDICATION LIST REVIEWED AND RECONCILED WITH THE PATIENT PAST MEDICAL HISTORY STROKE DIABETES MELLITUS HYPERLIPIDEMIA HYPERTENSION BACK PAIN ALLERGIES N.K.D.A. SOCIAL HISTORY GENERAL: TOBACCO USE ARE YOU A:NONSMOKER LATEX QUESTIONNAIRE LATEX ALLERGY : HAVE YOU EVER DEVELOPED ANY TYPE OF REACTION AFTER HANDLING LATEX PRODUCTS SUCH RUBBER GLOVES, CONDOMS, DIAPHRAGMS, BALLOONS, SOCKS, OR UNDERWEAR?NO LATEX ALLERGY : HAVE YOU EVER DEVELOPED ANY TYPE OF REACTION DURING OR AFTER DENTAL APPOINTMENT, VAGINAL/RECTAL EXAMINATION, SURGICAL PROCEDURE, OR ANY OTHER EXPOSURE?NO LATEX RISK : HAVE YOU EVER HAD ANY DIFFICULTY BREATHING OR HIVES AFTER EATING OR HANDLING ANY FRUITS, OR VEGETABLES; SUCH KIWI, BANANAS, STONE FRUITS, OR CHESTNUTSNO LATEX RISK : DO YOU HAVE A PREVIOUS PERSONAL HISTORY OF MORE THAN NINE SURGERIES, SPINA BIFIDA, OR REPEATED CATHERIZATIONS? NO LATEX RISK : ARE YOU FREQUENTLY EXPOSED TO LATEX PRODUCTS IN YOUR OCCUPATION?NO DATE ASKED : 01/27/2021 ALCOHOL USE: NO. ALCOHOL SCREENING DID YOU HAVE A DRINK CONTAINING ALCOHOL IN THE PAST YEAR?NO POINTS0 INTERPRETATIONNEGATIVE RECREATIONAL DRUG USE DRUG USE?NO CAFFEINE CAFFEINE USE?YES COFFEE- SOMETIMES LEARNING BARRIERS / SPECIAL NEEDS CHANGE FROM LAST VISIT?NO BARRIERS TO LEARNING?NO HEARING IMPAIRED?NO VISION IMPAIRED?YES : READING COGNITIVELY IMPAIRED?NO READINESS TO LEARN?YES LEARNING PREFERENCES?YES :TAPES/VIDEOS LEARNING CAPABILITIES PRESENT?YES EMOTIONAL BARRIERS?NO SPECIAL DEVICES?NO ONLINE HEALTH AND FITNESS COACH NEEDED?NO EXERCISE: WALK- 3 MILES DAILY, SWIMMING DAILY. REVIEW OF SYSTEMS CONSTITUTIONAL: ANY RECENT FEVER NO . CHILLS NO . WEIGHT CHANGE OF UNKNOWN REASONS NO . GASTROENTEROLOGY: NEW UNEXPLAINABLE CHANGES IN BOWEL CONTROL NO . CONSTIPATION NO . GENITOURINARY: ANY NEW CHANGE IN BLADDER CONTROL? NO . NEUROLOGY: NEW ONSET DIZZINESS OR NEUROLOGICAL CHANGES NOT MENTIONED NO . NEW NUMBNESS OR PAIN PATTERNS NOT MENTIONED AND PERTINENT TO TODAY'S VISIT NO . CARDIOLOGY: NEW CHEST PRESSURE NO . PATIENT DENIES NO . RESPIRATORY: UNEXPLAINABLE COUGH NO . NEW SHORTNESS OF BREATH NO . VITAL SIGNS WT 156.6 LBS, HT 59 IN, BMI 31.63 INDEX, BP 144/75 MM HG, HR 98 /MIN, RR 18 /MIN, TEMP 98.0 F, OXYGEN SAT % 95%, SAFE IN ENV? (Y/N) YES, NA INITIALS AW 0910, REVIEWED BY: RIVKA ROB MA. EXAMINATION GENERAL EXAMINATION: GENERALAWAKE,ALERT ,PLEASANT . PSYCHAFFECT NORMAL . LUNGS:LUNG BOWSER ARE CLEAR TO AUSCULTATION BILATERALLY. GOOD MOVEMENT OF AIR . HEART:S1, S2 IN A REGULAR RATE AND RHYTHM. NO SIGNIFICANT MURMURS, RUBS OR GALLOPS NOTED . ASSESSMENTS OTHER CHRONIC PAIN - G89.29 (PRIMARY) MYALGIA, OTHER SITE - M79.18 TREATMENT OTHER CHRONIC PAIN STOP SOMA TABLET, 350 MG, 1 TAB, ORALLY, AT BEDTIME, NOTES: 12/08 PAIN PROCEDURE LOGDATE OF [id number]/2021ROCEDURE:TRIGGER POINT INJECTIONS KEFT LOW BACK, LEFT BUTTOCK, LEFT PIRIFORMISAMOUNT OF PRE SEDATE0/0RESULT:RESOLUTION OF PAIN POSTPROCEDURE CONTINUES TODAY NOTES: ADVISED PATIENT TO STOP CARISOPRODOL 350 MG AT NIGHTTIME/MUSCLE RELAXANT. ADVISED TO USE THIS PERIODICALLY FOR SEVERE PAIN EPISODES IF NECESSARY. ADVISED TO CALL CLINIC IF HER PAIN RETURNS TO CONSIDER DOING INJECTIONS OR RESTARTING CARISOPRODOL. PROCEDURE CODES FA211 ESTABILISHED PATIENT [facility] CHARGE DISPOSITION & COMMUNICATION FOLLOW UP PATIENT WILL CALL IF FOLLOW-UP IS NECESSARY (REASON: RESPONDS WELL TO TRIGGER POINT INJECTIONS LEFT LOW BACK, LEFT BUTTOCK, LEFT PIRIFORMIS) ELECTRONICALLY SIGNED BY KATHERIN CRISTINA ON 01/27/2021 AT 10:05 AM EDT DISCLAIMER : THIS IS A VISIT SUMMARY EXTRACTED FROM THE [employer] CHART. IT IS NOT A COPY OF THE [employer] PROGRESS NOTE. KATRIN
== END ==
LOC: M PAIN 10:00
PROVIDERS: ATTEND Nurse Practitioner Family
DX: G89.29 Other chronic pain (principal); M79.18 Myalgia, other site; E11.9 Type 2 diabetes mellitus without complications; E78.5 Hyperlipidemia, unspecified; I10 Essential (primary) hypertension; Z79.4 Long term (current) use of insulin; Z79.899 Other long term (current) drug therapy

== ENCOUNTER → 2021-03-14 | Outpatient (CLI) | payer MEDICARE, OTHER ==
[~2021-03-14] MED LIST changes: +OMEP40CA4; -OMEP40CA97
--- NOTE | 2021-03-21 00:39 | ECWPNPC ---
PATIENT NAME: ANDRÉS KNIGHT : 1950 GENDER: FEMALE VISIT DATE: 03/14/2021 DISCHARGE DATE: 03/14/21 1015 VISIT LOCKED DATE TIME: PHYSICIAN: MICKI GANT RESOURCE: MICKI GANT REASON FOR APPOINTMENT 1. RESPONDS WELL TO TRIGGER POINT INJECTIONS LEFT LOW BACK, LEFT BUTTOCK, LEFT PIRIFORMIS HISTORY OF PRESENT ILLNESS DEPRESSION SCREENING: PHQ-2 (2015 EDITION) LITTLE INTEREST OR PLEASURE IN DOING THINGS?NOT AT ALL FEELING DOWN, DEPRESSED, OR HOPELESS?NOT AT ALL TOTAL SCORE0 GENERAL: HERE TODAY FOR FOLLOW-UP OF PERSISTENT LOW BACK PAIN. REPORTING NUMBNESS AND TINGLING IN THE LEFT SIDE OF HER FACE AND HANDS BILATERALLY. COMPLAINING OF LEFT LEG NUMBNESS. CONTINUES TO FIND SOMA SOMEWHAT HELPFUL AT NIGHTTIME BUT NUMBNESS AND PAIN IS WAKING HER UP AGAIN AT NIGHT. DISCUSSED TREATMENT PLAN. -. FALL RISK SCREENING: SCREENING : NO FALLS REPORTED IN THE LAST YEAR. PAIN SCREENING: PATIENT HAS A COMPLAINT OF ACUTE OR CHRONIC PAIN :YES LOCATION OF PAIN:OTHER: LEFT LOW BACK, LEFT BUTTOCK, LEFT PIRIFORMIS INTENSITY OF PAIN (SCALE OF 1 TO 10):5 WHAT DOES YOUR PAIN FEEL LIKE:OTHER CRAMPS DURATION:CONTINOUS, CONSTANT, ALL DAY PAIN IS INCREASED BY:ACTIVITIES PAIN IS DECREASED BY:OTHERS NOTHING HELPS NURSING NOTE: -. PAIN CENTER INTAKE QUESTIONS: DO YOU HAVE A HISTORY OF MRSA? :NO DO YOU TAKE A BLOOD THINNERS? :NO DO YOU HAVE ANY BLEEDING DISORDERS? :NO ANY NEW NUMBNESS OR WEAKNESS IN YOUR LEGS OR ARMS? :YES CRAMPS ALL OVER HER BODY ANY PACEMAKER,DEFIBRILLATOR, OR DORSAL COLUMN STIMULATOR? :NO DO YOU HAVE ANY RASHES OR OPEN SORES? :NO ARE YOU ALLERGIC TO IV DYE? :NO ARE YOU DIABETIC? :YES ANY NEW PROBLEMS WITH YOUR MEDICATIONS? :YES WOULD LIKE SOME MEDS TO HELP WITH HER SLEEP. AND FOR THE CRAMPS HAVE YOU RECEIVED A VACCINE IN THE PAST 30 DAYS? :NO DO YOU PLAN TO RECEIVE A VACCINE IN THE NEXT 21 DAYS? :NO DO YOU NEED ANY PRESCRIPTION? :NO DO YOU TAKE ANY IMMUNOSUPPRESSIVE MEDICATIONS? :NO IS THERE A CHANCE YOU COULD BE ? :NO ARE YOU BREAST FEEDING? :NO CURRENT MEDICATIONS TAKING VITAMIN B COMPLEX - TABLET DIRECTED ORALLY DAILY TAKING LISINOPRIL 12.5 1 TAB ORALLY ONCE DAILY TAKING NOVOLOG SUBCUTANEOUS 24AM AND 24PM TAKING LANTUS 32 UNITS SUBCUTANEOUS TAKING VITAMIN D 1000 UNIT TABLET 1 TAB ORALLY DAILY TAKING MULTIVITAMIN 1 TAB DAILY TAKING FISH OIL 1000 MG CAPSULE ORALLY DAILY TAKING OMEPRAZOLE 40 MG CAPSULE DELAYED RELEASE 1 TAB ORALLY DAILY TAKING PROCTOFOAM HC 1-1 % FOAM 1 APPLICATION NEEDED RECTAL FOUR TIMES A DAY TAKING DOCUSATE SODIUM 100 MG CAPSULE 1 CAPSULE NEEDED ORALLY BID TAKING GABAPENTIN (ONCE-DAILY) 300 MG TABLET 1 TABLET ORALLY ONCE A DAY TAKING LIDOCAINE 5 % PATCH 1 PATCH REMOVE AFTER 12 HOURS EXTERNALLY ONCE A DAY, NOTES: 12/08 TAKING NATHAN 500 MG CAPSULE DIRECTED ORALLY DAILY TAKING METFORMIN HCL 1000 MG TABLET ORALLY 1 TAB AM 1 TAB PM TAKING CALCIUM 600 + D NOT-TAKING SITAGLIPTIN PHOSPHATE NOT-TAKING GLYBURIDE-METFORMIN NOT-TAKING SIMVASTATIN 10 MEDICATION LIST REVIEWED AND RECONCILED WITH THE PATIENT PAST MEDICAL HISTORY STROKE DIABETES MELLITUS HYPERLIPIDEMIA HYPERTENSION BACK PAIN ALLERGIES NO[ALLERGIES VERIFIED] SOCIAL HISTORY GENERAL: TOBACCO USE ARE YOU A:NONSMOKER LATEX QUESTIONNAIRE LATEX ALLERGY : HAVE YOU EVER DEVELOPED ANY TYPE OF REACTION AFTER HANDLING LATEX PRODUCTS SUCH RUBBER GLOVES, CONDOMS, DIAPHRAGMS, BALLOONS, SOCKS, OR UNDERWEAR?NO LATEX ALLERGY : HAVE YOU EVER DEVELOPED ANY TYPE OF REACTION DURING OR AFTER DENTAL APPOINTMENT, VAGINAL/RECTAL EXAMINATION, SURGICAL PROCEDURE, OR ANY OTHER EXPOSURE?NO LATEX RISK : HAVE YOU EVER HAD ANY DIFFICULTY BREATHING OR HIVES AFTER EATING OR HANDLING ANY FRUITS, OR VEGETABLES; SUCH KIWI, BANANAS, STONE FRUITS, OR CHESTNUTSNO LATEX RISK : DO YOU HAVE A PREVIOUS PERSONAL HISTORY OF MORE THAN NINE SURGERIES, SPINA BIFIDA, OR REPEATED CATHERIZATIONS? NO LATEX RISK : ARE YOU FREQUENTLY EXPOSED TO LATEX PRODUCTS IN YOUR OCCUPATION?NO DATE ASKED : 03/14/2021 ALCOHOL USE: NO. ALCOHOL SCREENING DID YOU HAVE A DRINK CONTAINING ALCOHOL IN THE PAST YEAR?NO POINTS0 INTERPRETATIONNEGATIVE RECREATIONAL DRUG USE DRUG USE?NO CAFFEINE CAFFEINE USE?YES COFFEE- SOMETIMES LEARNING BARRIERS / SPECIAL NEEDS CHANGE FROM LAST VISIT?NO BARRIERS TO LEARNING?NO HEARING IMPAIRED?YES VISION IMPAIRED?YES : READING COGNITIVELY IMPAIRED?YES : SONE TIMES READINESS TO LEARN?YES LEARNING PREFERENCES?YES :TAPES/VIDEOS LEARNING CAPABILITIES PRESENT?YES EMOTIONAL BARRIERS?NO SPECIAL DEVICES?NO HIDE CLEANER NEEDED?NO DOES NOT NEED AND HIDE CLEANER BUT HAS SOME DIFFICULTY UNDERSTANDING EXERCISE: WALK- 3 MILES DAILY, SWIMMING DAILY. REVIEW OF SYSTEMS CONSTITUTIONAL: ANY RECENT FEVER NO . CHILLS NO . WEIGHT CHANGE OF UNKNOWN REASONS NO . GASTROENTEROLOGY: NEW UNEXPLAINABLE CHANGES IN BOWEL CONTROL NO . CONSTIPATION NO . GENITOURINARY: ANY NEW CHANGE IN BLADDER CONTROL? NO . NEUROLOGY: NEW ONSET DIZZINESS OR NEUROLOGICAL CHANGES NOT MENTIONED NO . NEW NUMBNESS OR PAIN PATTERNS NOT MENTIONED AND PERTINENT TO TODAY'S VISIT NO . CARDIOLOGY: NEW CHEST PRESSURE NO . PATIENT DENIES NO . RESPIRATORY: UNEXPLAINABLE COUGH NO . NEW SHORTNESS OF BREATH NO . VITAL SIGNS WT 156 LBS, HT 59 IN, BMI 31.50 INDEX, BP 121/82 MM HG, HR 95 /MIN, RR 18 /MIN, TEMP 87.1 F, OXYGEN SAT % 95%, SAFE IN ENV? (Y/N) YEST.CHRISTINA KIRKLAND. EXAMINATION GENERAL EXAMINATION: GENERALAWAKE,ALERT ,PLEASANT . PSYCHAFFECT NORMAL . LUNGS:LUNG BOWSER ARE CLEAR TO AUSCULTATION BILATERALLY. GOOD MOVEMENT OF AIR . HEART:S1, S2 IN A REGULAR RATE AND RHYTHM. NO SIGNIFICANT MURMURS, RUBS OR GALLOPS NOTED . ASSESSMENTS NEURALGIA AND NEURITIS, UNSPECIFIED - M79.2 (PRIMARY) MYALGIA, OTHER SITE - M79.18 TREATMENT NEURALGIA AND NEURITIS, UNSPECIFIED REFERRAL TO:[facility] REASON:CHRONIC COMPLAINTS OF FACIAL NUMBNESS, PAIN AND NUMBNESS IN HER LEFT LOWER EXTREMITY, BILATERAL HANDS VISIT CODES 01165 OFFICE VISIT, EST PT., LEVEL 3. PROCEDURE CODES FA211 ESTABILISHED PATIENT [facility] CHARGE DISPOSITION & COMMUNICATION FOLLOW UP 2 MONTHS (REASON: FOLLOW-UP ON NEUROLOGY REFERRAL) ELECTRONICALLY SIGNED BY KATHERIN CRISTINA ON 03/20/2021 AT 02:44 PM EDT DISCLAIMER : THIS IS A VISIT SUMMARY EXTRACTED FROM THE [employer] CHART. IT IS NOT A COPY OF THE [employer] PROGRESS NOTE. KATRIN
== END ==
LOC: M PAIN 09:45
PROVIDERS: ATTEND Nurse Practitioner Family
DX: M79.2 Neuralgia and neuritis, unspecified (principal); M79.18 Myalgia, other site; E11.9 Type 2 diabetes mellitus without complications; E78.5 Hyperlipidemia, unspecified; I10 Essential (primary) hypertension; Z86.73 Personal history of transient ischemic attack (TIA), and cerebral infarction without residual deficits; Z79.4 Long term (current) use of insulin; Z79.899 Other long term (current) drug therapy

== ENCOUNTER → 2021-04-09 | Outpatient (REF) | payer MEDICARE, OTHER | LOC: M LAB REF 17:03 | PROVIDERS: ATTEND Nurse Practitioner Family | DX: E83.42 Hypomagnesemia (principal) ==

== ENCOUNTER → 2021-06-05 | Outpatient (CLI) | payer MEDICARE, OTHER ==
--- NOTE | 2021-06-05 11:49 | DEXAMM ---
INDICATION: OSTEOPENIA DEGENERATIVE CHANGES. COMPARISON: 04/19/2019. TECHNIQUE: Bone density was measured using dual-energy x-ray absorptiometry (DEXA). FINDINGS: AP SPINE L1-L4 BMD 0.990 g/cm2 Young Adult T-Score -1.7 Age Matched Z-Score 0.0. LT FEMUR, TOTAL BMD 0.943 g/cm2 Young Adult T-Score -0.5 Age Matched Z-Score 0.9. LT NECK BMD 0.741 g/cm2 Young Adult T-Score -2.1 Age Matched Z-Score -0.5. RT FEMUR, TOTAL BMD 0.970 g/cm2 Young Adult T-Score -0.3 Age Matched Z-Score 1.1. RT NECK BMD 0.776 g/cm2 Young Adult T-Score -1.9 Age Matched Z-Score -0.2. IMPRESSION: There is low bone density of the spine. There is low bone density of the left hip. There is low bone density of the right hip. The density of the spine has decreased 1.3% since the initial exam on 04/19/2019. The density of the left hip has decreased 1.0% since initial exam on 04/19/2019. The density of the right hip has decreased 4.3% since the initial exam on 04/19/2019. FOLLOW-UP: Recommendation for the next bone density exam: 2 years. <Electronically signed by Moody Wharton > 06/05/21 [id number]
== END ==
LOC: M WHC 09:31
PROVIDERS: ATTEND Family Medicine
DX: Z13.820 Encounter for screening for osteoporosis (principal); M85.88 Other specified disorders of bone density and structure, other site; M85.851 Other specified disorders of bone density and structure, right thigh; M85.852 Other specified disorders of bone density and structure, left thigh

== ENCOUNTER → 2021-12-01 | Outpatient (REF) | payer MEDICARE, OTHER ==
[2021-12-01 18:07] LABS: URINE TOTAL PROTEIN 18.9 MG/DL (0-12)
[2021-12-01 21:51] LABS: TOTAL PROTEIN 24 HOUR URINE 396.9 MG/24HR (50-150)
== END ==
LOC: M LAB REF 16:49
PROVIDERS: ATTEND Nurse Practitioner Family
DX: R80.1 Persistent proteinuria, unspecified (principal)

== ENCOUNTER → 2022-01-13 | Outpatient (REF) | payer MEDICARE, OTHER ==
[2022-01-13 17:49] LABS: CREATININE,RANDOM URINE 17.1 MG/DL; TOTAL PROTEIN,RANDOM URINE 12.1 MG/DL (0.0-12.0)
== END ==
LOC: M LAB REF 16:41
PROVIDERS: ATTEND Nurse Practitioner Family
DX: N18.1 Chronic kidney disease, stage 1 (principal); R80.1 Persistent proteinuria, unspecified

== ENCOUNTER → 2022-04-15 | Outpatient (REF) | payer MEDICARE, OTHER ==
[2022-04-15 18:37] LABS: CREATININE,RANDOM URINE 36.1 MG/DL; TOTAL PROTEIN,RANDOM URINE 10.9 MG/DL (0.0-12.0)
== END ==
LOC: M LAB REF 17:28
PROVIDERS: ATTEND Nurse Practitioner Family
DX: R80.1 Persistent proteinuria, unspecified (principal)

== ENCOUNTER 2022-12-11 19:55 | Emergency (ER) | payer MEDICARE, OTHER ==
[~2022-12-11] VITALS: Ht 147.3 cm; Wt 69.8 kg
[~2022-12-11 19:55] MED LIST changes: +ALEN70TA87 PO; -FOSA70TA PO
[2022-12-11 20:47] LABS: BASO # 0.1 10^3/uL (0.0-0.2); BASO % 0.6 % (0.0-1.0); EOS # 0.3 10^3/uL (0.0-0.5); EOS % 2.7 % (0.0-3.0); HEMOGLOBIN 14.4 g/dl (12.0-15.5); LYMPH # 4.1 10^3/uL (1.5-5.0); LYMPH % 40.2 % (24.0-44.0); MEAN CORPUSCULAR HEMOGLOBIN 30.9 pg (27.0-33.0); MEAN CORPUSCULAR HGB CONC 32.7 g/dl (32.0-36.5); MEAN CORPUSCULAR VOLUME 94.4 fl (80.0-96.0); MONO # 0.8 10^3/uL (0.0-0.8); MONO % 8.1 % (2.0-8.0); NEUTROPHILS % 48.2 % (36.0-66.0); PLATELET COUNT, AUTOMATED 246 10^3/uL (150-450); RED BLOOD COUNT 4.66 10^6/uL (4.00-5.40); WHITE BLOOD COUNT 10.3 10^3/uL (4.0-10.0)
[2022-12-11 21:09] LABS: LIPASE 46 U/L (12-53)
[2022-12-11 21:11] LABS: ALBUMIN 3.5 G/DL (3.2-5.2); ALKALINE PHOSPHATASE 98 U/L (46-116); ALT/SGPT 49 U/L (7.0-40); AST/SGOT 70 U/L (<34); BILIRUBIN,DIRECT 0.2 MG/DL (<0.4); BILIRUBIN,TOTAL 0.7 MG/DL (0.3-1.2); BLOOD UREA NITROGEN 18 MG/DL (9-23); CALCIUM LEVEL 8.6 MG/DL (8.3-10.6); CARBON DIOXIDE LEVEL 24 MMOL/L (20-31); CHLORIDE LEVEL 105 MMOL/L (98-107); CREATININE FOR GFR 0.53 MG/DL (0.55-1.30); GLOMERULAR FILTRATION RATE > 60.0 (>39); GLUCOSE, FASTING 106 MG/DL (74-106); POTASSIUM SERUM 4.1 MMOL/L (3.5-5.1); SODIUM LEVEL 138 MMOL/L (136-145); TOTAL PROTEIN 6.9 G/DL (5.7-8.2)
[2022-12-11 21:30] VITALS: BP 148/68
[2022-12-11] MEDS ORDERED: CVS1KIT XX (21:33)
== END 2022-12-11 21:57 | disposition home or self-care (01) ==
LOC: M ED 19:55
DX: E11.649 Type 2 diabetes mellitus with hypoglycemia without coma (principal); T85.614A Breakdown (mechanical) of insulin pump, initial encounter; I10 Essential (primary) hypertension; K21.9 Gastro-esophageal reflux disease without esophagitis; E78.5 Hyperlipidemia, unspecified; Z86.73 Personal history of transient ischemic attack (TIA), and cerebral infarction without residual deficits; Z88.8 Allergy status to other drugs, medicaments and biological substances; Z79.84 Long term (current) use of oral hypoglycemic drugs; Z79.82 Long term (current) use of aspirin; Z79.899 Other long term (current) drug therapy; Z79.4 Long term (current) use of insulin

== ENCOUNTER → 2023-04-02 | Outpatient (CLI) | payer MEDICARE, OTHER ==
[~2023-04-02] MED LIST changes: +CVS1KIT XX
[2023-04-02 10:20] LABS: PLATELET COUNT, AUTOMATED 268 10^3/uL (150-450)
[2023-04-02 10:36] LABS: INR 1.03; PARTIAL THROMBOPLASTIN TIME 30.5 SECONDS (24.8-34.2); PROTHROMBIN TIME 13.2 SECONDS (12.5-14.5)
== END ==
LOC: M LAB 09:43
PROVIDERS: ATTEND Physician Assistant
DX: Z01.818 Encounter for other preprocedural examination (principal)

== ENCOUNTER → 2023-06-07 | Outpatient (CLI) | payer MEDICARE, OTHER | LOC: M WHC 08:38 | PROVIDERS: ATTEND Family Medicine | DX: M25.40 Effusion, unspecified joint (principal); M85.88 Other specified disorders of bone density and structure, other site ==

== ENCOUNTER 2023-09-01 06:31 | Day surgery (SDC) | payer MEDICARE, OTHER ==
[~2023-09-01] VITALS: Ht 147.3 cm; Wt 68.9 kg
[~2023-09-01 06:31] MED LIST changes: +AMLO1TAB24 PO; -ASPI-546; +ASPI-546 PO; -ATOR40TA75; +ATOR40TA75 PO; -JANU100T; +JANU100T PO; +JANU50TA25 PO; -JARD1TAB3; +JARD1TAB3 PO; +KP F1200 PO; +LANTINJ4 SC; +LISI20TA35 PO; +NS 1,000 ML IV ONE; -OMEP40CA4; +OMEP40CA4 PO; +ROSU20TA61 PO; +VITA100093 PO
[2023-09-01] MEDS ORDERED: fentaNYL 100 MCG/2 ML INJECTION As Ordered ONE (07:12)
[2023-09-01] MEDS ORDERED: propofoL 200 MG/20 ML VIAL As Ordered ONE (07:58)
[2023-09-01] MEDS ORDERED: PHENYLephrine 500MCG 5ML (100MCG/ML) SYRINGE As Ordered ONE (08:04)
[2023-09-01 08:17] VITALS: TEMP 97.7
[2023-09-01 08:35] VITALS: BP 189/91; O2SAT 96
== END 2023-09-01 08:45 | disposition home or self-care (01) ==
LOC: M OPP 06:31
PROVIDERS: ATTEND Internal Medicine Gastroenterology
DX: Z12.11 Encounter for screening for malignant neoplasm of colon (principal); Z86.010 Personal history of colon polyps; K64.0 First degree hemorrhoids; K57.30 Diverticulosis of large intestine without perforation or abscess without bleeding; K22.89 Other specified disease of esophagus; K44.9 Diaphragmatic hernia without obstruction or gangrene; K22.70 Barrett's esophagus without dysplasia; K31.A11 Gastric intestinal metaplasia without dysplasia, involving the antrum; K31.A14 Gastric intestinal metaplasia without dysplasia, involving the cardia; R12 Heartburn; E11.9 Type 2 diabetes mellitus without complications; Z86.73 Personal history of transient ischemic attack (TIA), and cerebral infarction without residual deficits; Z79.02 Long term (current) use of antithrombotics/antiplatelets; Z79.1 Long term (current) use of non-steroidal anti-inflammatories (NSAID); Z79.4 Long term (current) use of insulin; Z79.82 Long term (current) use of aspirin; Z79.891 Long term (current) use of opiate analgesic; Z79.899 Other long term (current) drug therapy; Z91.041 Radiographic dye allergy status
CPT/HCPCS: 43239; 88305; G0105; J2371; J3010

== ENCOUNTER → 2024-05-11 | Outpatient (CLI) | payer MEDICARE, OTHER ==
[~2024-05-11] MED LIST changes: -NS 1,000 ML IV ONE
== END ==
LOC: M WHC 06:48
PROVIDERS: ATTEND Internal Medicine
DX: Z12.31 Encounter for screening mammogram for malignant neoplasm of breast (principal)

== ENCOUNTER → 2024-07-17 | Outpatient (CLI) | payer MEDICARE, OTHER ==
[~2024-07-17] MED LIST changes: +CALC-356 PO; +GABA-1172 PO; +POOR HISTORIAN; +PRES10CA2 PO; -ROSU20TA61 PO; +ROSU20TA86 PO; +SEMA2PEN SC
== END ==
LOC: M PAIN 08:00
PROVIDERS: ATTEND Nurse Practitioner Family
DX: M54.16 Radiculopathy, lumbar region (principal); G89.29 Other chronic pain; E11.9 Type 2 diabetes mellitus without complications; E78.5 Hyperlipidemia, unspecified; I10 Essential (primary) hypertension; Z86.73 Personal history of transient ischemic attack (TIA), and cerebral infarction without residual deficits; Z79.4 Long term (current) use of insulin; Z79.899 Other long term (current) drug therapy

== ENCOUNTER → 2024-07-31 | Day surgery (SDC) | payer MEDICARE, OTHER ==
[~2024-07-31] VITALS: Ht 142.2 cm; Wt 67.1 kg
[~2024-07-31] MED LIST changes: +NS 250 ML IV ONE
== END | disposition home or self-care (01) ==
LOC: M OPP 07:27
PROVIDERS: ATTEND Internal Medicine Gastroenterology
DX: R12 Heartburn (principal); Z53.8 Procedure and treatment not carried out for other reasons

== ENCOUNTER → 2024-08-15 | Outpatient (CLI) | payer MEDICARE, OTHER ==
[~2024-08-15] MED LIST changes: -NS 250 ML IV ONE
== END ==
LOC: M PAIN 13:00
PROVIDERS: ATTEND Nurse Practitioner Family
DX: M51.16 Intervertebral disc disorders with radiculopathy, lumbar region (principal); G89.29 Other chronic pain; Z79.4 Long term (current) use of insulin; Z79.84 Long term (current) use of oral hypoglycemic drugs; Z79.899 Other long term (current) drug therapy

== ENCOUNTER → 2024-08-29 | Outpatient (CLI) | payer MEDICARE, OTHER ==
[~2024-08-29] MED LIST changes: +ISOVUE-M 300 61% 15ML VIAL As Ordered ONE; +LIDOCAINE 1% SDV 30ML VIAL As Ordered ONE; +NORCO, ANEXSIA 5/325MG TABLET (HYDROcodone/ACETAMINOPHEN) As Ordered ONE; +dexAMETHasone 10MG/1ML VIAL PRES.FREE As Ordered ONE; +diazePAM 5MG TABLET As Ordered ONE; +diphenhydrAMINE 25MG CAP As Ordered ONE
== END ==
LOC: M PAIN 14:30
PROVIDERS: ATTEND Anesthesiology
DX: M51.16 Intervertebral disc disorders with radiculopathy, lumbar region (principal); G89.29 Other chronic pain; Z79.4 Long term (current) use of insulin; Z79.84 Long term (current) use of oral hypoglycemic drugs; Z79.899 Other long term (current) drug therapy; Z80.8 Family history of malignant neoplasm of other organs or systems
CPT/HCPCS: 62323; 72110; J1100; Q9967

== ENCOUNTER → 2024-08-29 | Outpatient (CLI) | payer MEDICARE, OTHER ==
[~2024-08-29] MED LIST changes: -ISOVUE-M 300 61% 15ML VIAL As Ordered ONE; -LIDOCAINE 1% SDV 30ML VIAL As Ordered ONE; -NORCO, ANEXSIA 5/325MG TABLET (HYDROcodone/ACETAMINOPHEN) As Ordered ONE; -dexAMETHasone 10MG/1ML VIAL PRES.FREE As Ordered ONE; -diazePAM 5MG TABLET As Ordered ONE; -diphenhydrAMINE 25MG CAP As Ordered ONE
== END ==
LOC: M RAD 17:39
PROVIDERS: ATTEND Anesthesiology
DX: M51.16 Intervertebral disc disorders with radiculopathy, lumbar region (principal)

== ENCOUNTER 2024-09-11 08:46 | Day surgery (SDC) | payer MEDICARE, OTHER ==
[~2024-09-11] VITALS: Ht 147.3 cm; Wt 67.9 kg
[2024-09-11] MEDS ORDERED: propofoL 200 MG/20 ML VIAL As Ordered ONE (10:54)
[2024-09-11] MEDS ORDERED: GLYCOPYRROLATE INJ 0.2 MG/ML 2 ML VIAL As Ordered ONE (10:58)
[2024-09-11] MEDS ORDERED: LIDOCAINE 2% 100MG/5ML SDV (FOR ANES.) As Ordered ONE (10:58)
[2024-09-11 11:09] VITALS: TEMP 97.5
[2024-09-11 11:30] VITALS: BP 119/72; O2SAT 94
== END 2024-09-11 11:41 | disposition home or self-care (01) ==
LOC: M OPP 08:46
PROVIDERS: ATTEND Internal Medicine Gastroenterology
DX: K22.89 Other specified disease of esophagus (principal); K44.9 Diaphragmatic hernia without obstruction or gangrene; K22.70 Barrett's esophagus without dysplasia; R13.10 Dysphagia, unspecified; R12 Heartburn; Z91.048 Other nonmedicinal substance allergy status; Z79.82 Long term (current) use of aspirin; Z79.84 Long term (current) use of oral hypoglycemic drugs; Z79.4 Long term (current) use of insulin; Z79.899 Other long term (current) drug therapy; Z86.73 Personal history of transient ischemic attack (TIA), and cerebral infarction without residual deficits
CPT/HCPCS: 43239; 88305; J1596

== ENCOUNTER → 2024-10-05 | Outpatient (CLI) | payer MEDICARE, OTHER | LOC: M PAIN 11:15 | PROVIDERS: ATTEND Nurse Practitioner Family | DX: M51.16 Intervertebral disc disorders with radiculopathy, lumbar region (principal); G89.29 Other chronic pain; Z79.4 Long term (current) use of insulin; Z79.84 Long term (current) use of oral hypoglycemic drugs; Z79.899 Other long term (current) drug therapy ==

== ENCOUNTER → 2024-10-25 | Outpatient (REF) | payer MEDICARE, OTHER ==
[2024-10-30 23:52] LABS: HPV VAGINAL Not Detected (NOT DETECT)
== END ==
LOC: M SFHCWAGY 10:44
PROVIDERS: ATTEND Nurse Practitioner Family
DX: Z12.72 Encounter for screening for malignant neoplasm of vagina (principal); Z11.51 Encounter for screening for human papillomavirus (HPV); N95.2 Postmenopausal atrophic vaginitis
CPT/HCPCS: 87624; G0123